=== PATIENT | female | born 1965 | race Two or more races ===

== ENCOUNTER 2019-03-04 16:49 | Emergency (ER) | payer MEDICAID, OTHER ==
[~2019-03-04] VITALS: Ht 160 cm; Wt 102.1 kg
[~2019-03-04 16:49] MED LIST: FLUO40CA PO
[2019-03-04 19:33] LABS: Basophils # (auto) 0 uL; Basophils % (auto) 0.4 % (0.0-2.0); Eosinophils # (auto) 0 uL; Eosinophils % (auto) 0.4 % (0.0-7.0); Hemoglobin 14.4 g/dL (12.2-16.2); Lymphocytes # (auto) 2.8 uL; Lymphocytes % (auto) 48.6 % (10.0-50.0); Mean Corpuscular Hemoglobin 29.2 pg (28.0-32.0); Mean Corpuscular Hgb Conc. 33.4 g/dL (32.0-36.0); Mean Corpuscular Volume 87.5 fL (80.0-100.0); Monocytes # (auto) 0.6 uL; Monocytes % (auto) 9.8 % (0.0-12.0); Neutrophils # (auto) 2.4 uL; Neutrophils % (auto) 40.8 % (37.0-80.0); Nucleated Red Blood Cells % 0.1 %; Platelet Count (auto) 362 10^3/uL (140-450); Red Blood Cells 4.92 10^6/uL (4.0-5.20); White Blood Cell 5.8 10^3/uL (4.4-10.8)
[2019-03-04 19:53] LABS: Albumin 3.5 g/dL (3.4-5.0); Calcium 8.9 mg/dL (8.5-10.1); Potassium 3.6 mmol/L (3.5-5.1)
[2019-03-04 19:57] LABS: BUN/Creatinine Ratio 27.4; Bilirubin, Total 0.1 mg/dL (0.2-1.0); Total Protein 8.5 g/dL (6.4-8.2)
[2019-03-04 20:58] VITALS: BP 137/79
== END 2019-03-04 21:00 | disposition home or self-care (01) ==
LOC: ER 16:49
DX: J40 Bronchitis, not specified as acute or chronic (principal); I10 Essential (primary) hypertension
CPT/HCPCS: 36415; 71046; 80053; 85025

== ENCOUNTER 2020-10-10 13:20 | Inpatient (IN) | payer MEDICAID ==
[~2020-10-10] VITALS: Ht 160 cm; Wt 103.7 kg
[2020-10-10] MEDS ORDERED: cefTRIAXone 1GM/50ML D5W 50 ML IV ONE (14:30)
[2020-10-10] MEDS ORDERED: SODIUM CHLORIDE 0.9% 1,000 ML IV ONE ×2 (14:30)
[2020-10-10] MEDS ORDERED: metroNIDAZOLE 500MG/100ML 100 ML IV ONE (14:30)
[2020-10-10] MEDS ORDERED: MORPHINE SULFATE 4 MG/ML SYR/VIAL IV ONE (14:30)
[2020-10-10] MEDS ORDERED: ONDANSETRON HCL 4 MG/2 ML VIAL IV ONE (14:30)
[2020-10-10 15:00] LABS: Urine Bacteria FEW /hpf (None Seen); Urine Blood Negative /uL (Negative); Urine Mucus FEW (None Seen); Urine Specific Gravity 1.031 (1.001-1.035); Urine WBC 1 /hpf (0 - 5)
[2020-10-10 15:11] LABS: Basophils # (auto) 0 10 ^3/uL (0-0.2); Basophils % (auto) 0.2 % (0.0-2.0); Eosinophils # (auto) 0 10 ^3/uL (0-0.8); Eosinophils % (auto) 0.1 % (0.0-7.0); Hematocrit 43.3 % (36.0-46.0); Hemoglobin 14.4 g/dL (12.2-16.2); Lymphocytes # (auto) 1.3 10 ^3/uL (0.4-5.4); Lymphocytes % (auto) 7.6 % (10.0-50.0); Mean Corpuscular Hemoglobin 28.7 pg (28.0-32.0); Mean Corpuscular Hgb Conc. 33.3 g/dL (32.0-36.0); Mean Corpuscular Volume 86.1 fL (80.0-100.0); Monocytes # (auto) 1.2 10 ^3/uL (0-1.3); Monocytes % (auto) 6.8 % (0.0-12.0); Neutrophils # (auto) 14.8 10 ^3/uL (1.6-8.6); Neutrophils % (auto) 85.3 % (37.0-80.0); Red Blood Cells 5.03 10^6/uL (4.0-5.20); Red Cell Distribution Width 14.4 % (11.8-14.3); White Blood Cell 17.4 10^3/uL (4.4-10.8)
[2020-10-10 15:23] LABS: Alanine Aminotransferase 23 U/L (13-56); Albumin 3.5 g/dL (3.4-5.0); Anion Gap 7 (5-15); Aspartate Aminotransferase 17 U/L (15-37); BUN/Creatinine Ratio 16.4; Blood Urea Nitrogen 10 mg/dL (7-18); Carbon Dioxide 27 mmol/L (21-32); Chloride 103 mmol/L (98-107); GFR African American 130 mL/min; GFR Non-African American 108 mL/min; Glucose 114 mg/dL (74-106); Potassium 3.5 mmol/L (3.5-5.1); Sodium 137 mmol/L (136-145)
[2020-10-10 15:41] LABS: Alkaline Phosphatase 100 U/L (45-117); Bilirubin, Total 0.4 mg/dL (0.2-1.0); Total Protein 8.8 g/dL (6.4-8.2)
[2020-10-10] MEDS ORDERED: ACETAMINOPHEN 650 mg PER 20.3 mL UD PO ONE (20:30)
[2020-10-10] MEDS ORDERED: ACETAMINOPHEN 500 MG TAB PO ONE (20:45)
[2020-10-10] MEDS ORDERED: hydrALAZINE HCL 20 MG/ML VL IV PRN (22:15)
[2020-10-10] MEDS ORDERED: NITROGLYCERIN 0.4 MG SL TAB SL PRN (22:15)
[2020-10-10] MEDS ORDERED: ONDANSETRON HCL 4 MG/2 ML VIAL IV PRN (22:15)
[2020-10-10] MEDS ORDERED: MORPHINE SULFATE INJECTION 2 MG/ML SYRG IV PRN (22:15)
[2020-10-10] MEDS ORDERED: MORPHINE SULFATE 4 MG/ML SYR/VIAL IV PRN (22:15)
[2020-10-10] MEDS ORDERED: POTASSIUM CHL 20MEQ/50ML 50 ML IV ONE (22:15)
[2020-10-10] MEDS ORDERED: SODIUM CHLORIDE 0.9% 1,000 ML IV SCH (22:15)
[2020-10-10 23:48] VITALS: BP 122/69
[2020-10-11] MEDS ORDERED: AMLO-489 PO (00:49)
[2020-10-11 05:00] VITALS: BP 138/72
[2020-10-11 05:48] LABS: Basophils # (auto) 0.1 10 ^3/uL (0-0.2); Basophils % (auto) 0.6 % (0.0-2.0); Eosinophils # (auto) 0 10 ^3/uL (0-0.8); Eosinophils % (auto) 0.1 % (0.0-7.0); Hematocrit 37.3 % (36.0-46.0); Hemoglobin 12.5 g/dL (12.2-16.2); Lymphocytes # (auto) 1.7 10 ^3/uL (0.4-5.4); Lymphocytes % (auto) 10.5 % (10.0-50.0); Mean Corpuscular Hemoglobin 29.1 pg (28.0-32.0); Mean Corpuscular Hgb Conc. 33.5 g/dL (32.0-36.0); Mean Corpuscular Volume 86.8 fL (80.0-100.0); Monocytes % (auto) 5.8 % (0.0-12.0); Neutrophils # (auto) 13.7 10 ^3/uL (1.6-8.6); White Blood Cell 16.5 10^3/uL (4.4-10.8)
[2020-10-11 05:58] LABS: Albumin 2.8 g/dL (3.4-5.0); Calcium 8.7 mg/dL (8.5-10.1); Potassium 3.7 mmol/L (3.5-5.1)
[2020-10-11 06:00] LABS: BUN/Creatinine Ratio 18.8; Bilirubin, Total 0.6 mg/dL (0.2-1.0); Total Protein 7.8 g/dL (6.4-8.2)
[2020-10-11] MEDS: metroNIDAZOLE 500MG/100ML 100 ML IV SCH ×3 (06:26→22:47)
[2020-10-11 09:00] VITALS: BP 130/74
[2020-10-11] MEDS: FAMOTIDINE (10MG/ML) 2ML VL IV SCH ×2 (11:24→22:46)
[2020-10-11] MEDS: cefTRIAXone 1GM/50ML D5W 50 ML IV SCH (11:24)
[2020-10-11] MEDS: ENOXAPARIN SOD 40 MG/0.4 ML SYRINGE SC SCH (11:25)
[2020-10-11] MEDS: SODIUM CHLORIDE 0.9% 1,000 ML IV SCH ×2 (11:25→23:53)
[2020-10-11] MEDS: LACTULOSE 20Gm/30ML SOLN PO PRN ×2 (11:26→19:30)
[2020-10-11 13:07] VITALS: BP 123/74
[2020-10-11] MEDS: ACETAMINOPHEN 325 MG TAB PO PRN ×2 (16:28→23:51)
[2020-10-11 16:42] VITALS: BP 145/80
[2020-10-11 22:00] VITALS: BP 127/77
[2020-10-11] MEDS: AMITRIPTYLINE HCL 25 MG TAB PO SCH (22:00)
[2020-10-12] MEDS ORDERED: TEMAZEPAM 15 MG CAP PO PRN (00:15)
[2020-10-12] MEDS: LACTULOSE 20Gm/30ML SOLN PO PRN (02:56)
[2020-10-12 05:00] VITALS: BP 151/88
[2020-10-12] MEDS: metroNIDAZOLE 500 MG TAB PO SCH ×3 (06:29→22:38)
[2020-10-12] MEDS: SODIUM CHLORIDE 0.9% 1,000 ML IV SCH ×2 (06:30→16:30)
[2020-10-12] MEDS ORDERED: MAGNESIUM CITRATE SOLUTION 300 ML BTL PO ONE ×2 (09:15→10:00)
[2020-10-12 09:17] LABS: Basophils # (auto) 0.1 10 ^3/uL (0-0.2); Basophils % (auto) 0.5 % (0.0-2.0); Eosinophils # (auto) 0 10 ^3/uL (0-0.8); Eosinophils % (auto) 0.2 % (0.0-7.0); Hematocrit 38.1 % (36.0-46.0); Hemoglobin 12.5 g/dL (12.2-16.2); Lymphocytes # (auto) 1.5 10 ^3/uL (0.4-5.4); Lymphocytes % (auto) 9.8 % (10.0-50.0); Mean Corpuscular Hemoglobin 28.6 pg (28.0-32.0); Mean Corpuscular Hgb Conc. 32.8 g/dL (32.0-36.0); Monocytes # (auto) 0.8 10 ^3/uL (0-1.3); Monocytes % (auto) 4.9 % (0.0-12.0); Neutrophils # (auto) 13.2 10 ^3/uL (1.6-8.6); Neutrophils % (auto) 84.6 % (37.0-80.0); Nucleated Red Blood Cells % 0.1 %; Red Blood Cells 4.38 10^6/uL (4.0-5.20); Red Cell Distribution Width 14.8 % (11.8-14.3); White Blood Cell 15.5 10^3/uL (4.4-10.8)
[2020-10-12 09:45] LABS: BUN/Creatinine Ratio 8.1; Calcium 9.1 mg/dL (8.5-10.1); Potassium 3.5 mmol/L (3.5-5.1)
[2020-10-12 12:00] VITALS: BP 154/86
[2020-10-12] MEDS ORDERED: IOHEXOL 300 MG/ML 100ML BOTTLE IJ ONE (14:28)
[2020-10-12] MEDS: FAMOTIDINE (10MG/ML) 2ML VL IV SCH ×2 (15:50→23:02)
[2020-10-12] MEDS: cefTRIAXone 1GM/50ML D5W 50 ML IV SCH (15:50)
[2020-10-12] MEDS: ENOXAPARIN SOD 40 MG/0.4 ML SYRINGE SC SCH (15:51)
[2020-10-12 17:00] VITALS: BP 148/78
[2020-10-12 22:00] VITALS: BP 137/74
[2020-10-12] MEDS: HYDROcodone-ACET 5/325MG TAB PO PRN (22:38)
[2020-10-12] MEDS: AMITRIPTYLINE HCL 25 MG TAB PO SCH (22:39)
[2020-10-12] MEDS: PIPERACILLIN-TAZO 4.5GM 100 ML IV SCH (23:29)
[2020-10-13] MEDS: PIPERACILLIN-TAZO 4.5GM 100 ML IV SCH ×2 (00:22→14:00)
[2020-10-13 05:00] VITALS: BP 132/70
[2020-10-13] MEDS: metroNIDAZOLE 500 MG TAB PO SCH (06:00)
[2020-10-13] MEDS: SODIUM CHLORIDE 0.9% 1,000 ML IV SCH ×2 (07:15→12:30)
[2020-10-13 08:00] VITALS: BP 122/65
[2020-10-13 09:00] VITALS: BP 122/94
[2020-10-13] MEDS: ENOXAPARIN SOD 40 MG/0.4 ML SYRINGE SC SCH (09:34)
[2020-10-13] MEDS: FAMOTIDINE (10MG/ML) 2ML VL IV SCH (09:34)
[2020-10-13] MEDS: HYDROcodone-ACET 5/325MG TAB PO PRN (09:35)
[2020-10-13] MEDS ORDERED: POTASSIUM CHL 20 Meq TABLET PO ONE (11:15)
[2020-10-13] MEDS ORDERED: ATOR20TA50 PO (11:26)
[2020-10-13] MEDS ORDERED: AMIT-256 PO (11:26)
[2020-10-13] MEDS ORDERED: CHLO25TA2 PO (11:26)
[2020-10-13 11:54] LABS: Basophils # (auto) 0 10 ^3/uL (0-0.2); Basophils % (auto) 0.5 % (0.0-2.0); Eosinophils # (auto) 0.1 10 ^3/uL (0-0.8); Eosinophils % (auto) 1.4 % (0.0-7.0); Hematocrit 37.4 % (36.0-46.0); Hemoglobin 12.5 g/dL (12.2-16.2); Lymphocytes # (auto) 1.5 10 ^3/uL (0.4-5.4); Mean Corpuscular Hemoglobin 28.8 pg (28.0-32.0); Mean Corpuscular Hgb Conc. 33.3 g/dL (32.0-36.0); Mean Corpuscular Volume 86.4 fL (80.0-100.0); Monocytes # (auto) 0.6 10 ^3/uL (0-1.3); Monocytes % (auto) 7.6 % (0.0-12.0); Neutrophils % (auto) 72.5 % (37.0-80.0); Red Blood Cells 4.33 10^6/uL (4.0-5.20); Red Cell Distribution Width 14.5 % (11.8-14.3); White Blood Cell 8.2 10^3/uL (4.4-10.8)
[2020-10-13] MEDS ORDERED: METR500T PO (11:55)
[2020-10-13] MEDS ORDERED: LEVO500T31 PO (11:55)
[2020-10-13 12:44] VITALS: BP 128/63
[2020-10-13 15:45] VITALS: BP 128/63
== END 2020-10-13 16:45 | disposition home or self-care (01) | DRG 720 ==
LOC: ER 13:20 → OVERFLOW 22:04 → WEST WING 23:22
PROVIDERS: ADMIT Nurse Practitioner Family; ATTEND Internal Medicine
DX: A41.9 Sepsis, unspecified organism (principal); R16.0 Hepatomegaly, not elsewhere classified; K57.32 Diverticulitis of large intestine without perforation or abscess without bleeding; E66.01 Morbid (severe) obesity due to excess calories; F32.9 Major depressive disorder, single episode, unspecified; I10 Essential (primary) hypertension; K59.00 Constipation, unspecified; Z20.822 Contact with and (suspected) exposure to COVID-19; Z79.899 Other long term (current) drug therapy; Z53.20 Procedure and treatment not carried out because of patient's decision for unspecified reasons; Z80.41 Family history of malignant neoplasm of ovary; Z82.49 Family history of ischemic heart disease and other diseases of the circulatory system; M19.90 Unspecified osteoarthritis, unspecified site; Z68.41 Body mass index [BMI] 40.0-44.9, adult
CPT/HCPCS: 36415; 71045; 74176; 74177; 80048; 80053; 81001; 83036; 83605; 84484; 85025; 87040; 87426; 96365; 96368; 96375; G0378; J0696; J2405; J2543; J3490

== ENCOUNTER 2022-01-19 22:38 | Emergency (ER) | payer MEDICAID ==
[~2022-01-19 22:38] MED LIST changes: +AMIT-256 PO; +AMLO-489 PO; +ATOR20TA50 PO; +CHLO25TA2 PO; -FLUO40CA PO; +LEVO500T31 PO; +METR500T PO
[2022-01-20 00:53] LABS: Urine Bacteria FEW /hpf (None Seen); Urine Blood TRACE /uL (Negative); Urine Mucus FEW (None Seen); Urine Specific Gravity 1.022 (1.001-1.035); Urine WBC 5 /hpf (0 - 5)
[2022-01-20] MEDS ORDERED: SODIUM CHLORIDE 0.9% 1,000 ML IV ONE ×2 (01:45→06:45)
[2022-01-20 02:11] LABS: Basophils # (auto) 0 10 ^3/uL (0-0.2); Basophils % (auto) 0.4 % (0.0-2.0); Eosinophils # (auto) 0 10 ^3/uL (0-0.8); Eosinophils % (auto) 0.3 % (0.0-7.0); Hematocrit 42.2 % (36.0-46.0); Hemoglobin 13.8 g/dL (12.2-16.2); Lymphocytes # (auto) 1.2 10 ^3/uL (0.4-5.4); Lymphocytes % (auto) 8.9 % (10.0-50.0); Mean Corpuscular Hemoglobin 28.9 pg (28.0-32.0); Mean Corpuscular Hgb Conc. 32.6 g/dL (32.0-36.0); Mean Corpuscular Volume 88.6 fL (80.0-100.0); Monocytes # (auto) 0.4 10 ^3/uL (0-1.3); Monocytes % (auto) 3.3 % (0.0-12.0); Neutrophils # (auto) 11.4 10 ^3/uL (1.6-8.6); Neutrophils % (auto) 87.1 % (37.0-80.0); Red Blood Cells 4.77 10^6/uL (4.0-5.20); Red Cell Distribution Width 14.2 % (11.8-14.3); White Blood Cell 13.1 10^3/uL (4.4-10.8)
[2022-01-20 02:26] LABS: Albumin 3.8 g/dL (3.4-5.0); Anion Gap 8 (5-15); Blood Urea Nitrogen 17 mg/dL (7-18); Calcium 9.3 mg/dL (8.5-10.1); Carbon Dioxide 25 mmol/L (21-32); Chloride 108 mmol/L (98-107); Glucose 118 mg/dL (74-106); Lipase 129 U/L (73-393); Potassium 4.4 mmol/L (3.5-5.1); Sodium 141 mmol/L (136-145)
[2022-01-20 02:27] LABS: Alanine Aminotransferase 30 U/L (13-56); Aspartate Aminotransferase 17 U/L (15-37); BUN/Creatinine Ratio 22.4; GFR African American 101 mL/min; GFR Non-African American 83 mL/min
[2022-01-20 02:31] LABS: Alkaline Phosphatase 97 U/L (45-117); Bilirubin, Total 0.6 mg/dL (0.2-1.0); Total Protein 8.3 g/dL (6.4-8.2)
[2022-01-20] MEDS ORDERED: cefTRIAXone 1GM/50ML D5W 50 ML IV ONE (06:45)
[2022-01-20] MEDS ORDERED: metroNIDAZOLE 500MG/100ML 100 ML IV ONE (06:45)
[2022-01-20] MEDS ORDERED: SODIUM CHLORIDE 0.9% 1,000 ML IVB ONE (06:45)
[2022-01-20 12:00] VITALS: BP 138/67
[2022-01-20] MEDS ORDERED: LACTULOSE 20Gm/30ML SOLN PO ONE (12:00)
[2022-01-20] MEDS ORDERED: DOCUSATE SOD 100 MG CAP PO ONE (12:00)
[2022-01-20] MEDS ORDERED: DOCU-94 PO (12:33)
== END 2022-01-20 15:40 | disposition home or self-care (01) ==
LOC: ER 22:39
DX: R10.11 Right upper quadrant pain (principal); I10 Essential (primary) hypertension
CPT/HCPCS: 36415; 74176; 76700; 80053; 81001; 83690; 85025; 96361; 96365; 96366; 96367; 99285; J0696; J3490; J7030

== ENCOUNTER 2023-03-13 15:33 | Emergency (ER) | payer MEDICAID ==
[~2023-03-13] VITALS: Ht 160 cm; Wt 110.5 kg
[~2023-03-13 15:33] MED LIST changes: -AMLO-489 PO; +AMLO1TAB22 PO; +DOCU-94 PO
[2023-03-13 16:00] VITALS: BP 143/86; PULSE 83; RESP 16; TEMP 98.3; O2SAT 96
[2023-03-13] MEDS ORDERED: HYDROcodone-ACET 5/325MG TAB PO ONE (16:15)
[2023-03-13] MEDS ORDERED: METH-1182 PO (17:37)
[2023-03-13] MEDS ORDERED: IBUP-1454 PO (17:37)
== END 2023-03-13 17:41 | disposition home or self-care (01) ==
LOC: ER 15:33
DX: S33.5XXA Sprain of ligaments of lumbar spine, initial encounter (principal); S83.91XA Sprain of unspecified site of right knee, initial encounter; S39.013A Strain of muscle, fascia and tendon of pelvis, initial encounter; W18.09XA Striking against other object with subsequent fall, initial encounter; Y93.89 Activity, other specified; Y92.89 Other specified places as the place of occurrence of the external cause; Y99.8 Other external cause status
CPT/HCPCS: 72100; 72170; 73562

== ENCOUNTER 2024-05-03 12:11 | Inpatient (IN) | payer MEDICAID ==
[~2024-05-03] VITALS: Ht 160 cm; Wt 121.3 kg
[~2024-05-03 12:11] MED LIST changes: +IBUP-1454 PO; +METH-1182 PO
[2024-05-03] MEDS: IOHEXOL 300 MG/ML 100ML BOTTLE IJ ONE (14:12)
[2024-05-03 14:27] LABS: Basophils # (auto) 0.1 10 ^3/uL (0-0.2); Basophils % (auto) 0.5 % (0.0-2.0); Eosinophils # (auto) 0 10 ^3/uL (0-0.8); Eosinophils % (auto) 0.4 % (0.0-7.0); Hematocrit 43.9 % (36.0-46.0); Hemoglobin 14.4 g/dL (12.2-16.2); Lymphocytes # (auto) 1.9 10 ^3/uL (0.4-5.4); Lymphocytes % (auto) 14.7 % (10.0-50.0); Mean Corpuscular Hemoglobin 29.3 pg (28.0-32.0); Mean Corpuscular Hgb Conc. 32.8 g/dL (32.0-36.0); Mean Corpuscular Volume 89.4 fL (80.0-100.0); Monocytes % (auto) 7.4 % (0.0-12.0); Neutrophils # (auto) 10.2 10 ^3/uL (1.6-8.6); Nucleated Red Blood Cells % 0.1 %; Platelet Count (auto) 449 10^3/uL (140-450); Red Blood Cells 4.91 10^6/uL (4.0-5.20); Red Cell Distribution Width 14.6 % (11.8-14.3); White Blood Cell 13.2 10^3/uL (4.4-10.8)
[2024-05-03 14:30] LABS: Urine Bacteria None Seen /hpf (None Seen)
[2024-05-03 14:39] LABS: Urine Blood Negative /uL (Negative); Urine Clarity Clear (Clear); Urine Color Light-Yellow (Yellow); Urine Protein, UAD Negative (Negative); Urine Specific Gravity 1.023 (1.001-1.035); Urine Squamous Epithelial Cell FEW /hpf (<5); Urine Urobilinogen Normal (Negative); Urine WBC 1 /HPF (0-5)
[2024-05-03 14:58] LABS: Alanine Aminotransferase 18 U/L (7-40); Albumin 4.7 g/dL (3.2-4.8); Alkaline Phosphatase 98 U/L (46-116); Anion Gap 9 (5-15); Aspartate Aminotransferase 18 U/L (13-40); BUN/Creatinine Ratio 14.8 (10.0-20.0); Blood Urea Nitrogen 12 mg/dL (9-23); Calcium 10.2 mg/dL (8.7-10.4); Carbon Dioxide 26 mmol/L (20-31); Chloride 102 mmol/L (98-107); Glucose 93 mg/dL (74-106); Lipase 44 U/L (12-53); Potassium 4.4 mmol/L (3.5-5.1); Sodium 137 mmol/L (136-145)
[2024-05-03 15:01] LABS: Bilirubin, Total 0.3 mg/dL (0.2-1.0); Total Protein 8.5 g/dL (5.7-8.2)
--- NOTE | 2024-05-03 15:36 | DVH ---
EXAM: CT CT AB PEL WITH IV CON ONLY HISTORY: Ab pain. r/o diverticulitis COMPARISON: CT AB PEL WITH IV CON ONLY on DOS: 10/12/20 TECHNIQUE: Helical CT images of the abdomen and pelvis were performed with 100 mL Omnipaque 300 IV co ntrast. Sagittal and coronal reformatted images were obtained. This CT exam was performed using 1 or more of the following dose reduction techniques: Automated exposure control, adjustment of the mA and /or kv according to patient size, or the use of iterative reconstruction techniques. Radiation Dose Information: CT Dose: CTDI volume is 27.88 mGy. Dose-length product is 1630.36 mGy*cm FINDINGS: CT abdomen: There is peribronchial thickening in the lung bases. The heart is borderline enlarged. Th ere are coronary artery calcifications. Gallstone is identified in the dependent portion of the gallb ladder. There may be a right renal inferior pole nonobstructing 3 mm calculus versus artifactual appe arance due to early contrast excretion (image 53, series 2). The liver measures 23 cm longitudinal an d is diffusely fatty density. The spleen, pancreas, left kidney, and bilateral adrenal glands are unr emarkable. No abdominal aortic aneurysm or dissection. CT pelvis: No abnormal bowel dilatation. There are descending and sigmoid colon diverticula. There is wall thickening and adjacent fat stranding involving the sigmoid colon, with small pockets of extr aluminal gas (image 79, series 2), consistent with acute diverticulitis. The uterus is surgically abs ent. The urinary bladder is unremarkable. The appendix is not dilated. There is advanced lower lumbar degenerative disc disease and facet arthropathy. There is mild osteoarthritis of the hips, slightly greater on the right IMPRESSION: 1. Acute sigmoid diverticulitis with small pockets of extraluminal gas which may represent developing pericolic abscess. No evidence of formed drainable pericolic abscess at this time. 2. Coronary artery disease and Borderline cardiomegaly. 3. Hepatomegaly and hepatic steatosis. 4. Postoperative changes of hysterectomy. 5. Advanced lower lumbar degenerative disc disease and facet arthropathy. 6. No evidence of bowel obstruction, acute appendicitis, or other acute process in the abdomen or pel vis.
--- NOTE | 2024-05-03 16:28 | ED.PDOC ---
GI ASSESSMENT HPI Comments This is a pleasant 58-year-old with a history of diverticulitis several years ago who presents with a chief complaint of atraumatic left lower quadrant abdominal pain x5 days. Pain is nonradiating the patient reports pain has remained persistent for the last five days. Unable to get adequate relief with [id number] Tylenol. Patient also reports symptoms of mild constipation. Last bowel movement was today but smaller than usual. Denies fevers chills night sweats unintentional weight loss Denies nausea vomiting diarrhea Denies blood in the stool Denies sick contact with similar symptoms Denies new foods/medications Denies family history of GI cancer Denies urgency, frequency, hematuria Denies vaginal discharge Chief Complaint: Constipation Time Seen by MD: 13:03 Primary Care Provider: AMY Hernandez Notes: Nurses Notes, Medications, Allergies Allergies: Coded Allergies: NO KNOWN ALLERGIES (Unverified , 07/22/15) Home Meds Active Scripts Lactulose (Lactulose) 10 Gm/15 Ml Jennie, 10 GM PO DAILY PRN for 30 Days, #300 ML 0 Refills Prov:LOAN EUGENE RESIDENT 05/06/24 Amoxicillin & Pot Clavulanate (AUGMENTIN TABLET) 875 Mg Tb, 875 MG PO BID for 7 Days, #14 TAB 0 Refills Prov:LOAN EUGENE RESIDENT 05/06/24 Reported Medications Citalopram Hydrobromide (Citalopram Hydrobromide) 20 Mg Tab, 1 TAB PO DAILY 05/03/24 Amlodipine Besylate (Amlodipine Besylate) 5 Mg Tab, 10 MG PO DAILY, MG 10/11/20 Discontinued Reported Medications Chlorthalidone (Chlorthalidone) 25 Mg Tab, 1 TAB PO DAILYPRN 10/13/20 Amitriptyline HCl (Amitriptyline Hydrochlori) 50 Mg Tab, 1 TAB PO 10/13/20 Atorvastatin Calcium (ATORVASTATIN CALCIUM) 20 Mg Tab, 1 TAB PO DAILYPRN 10/13/20 Information Source: Patient Mode of Arrival: Ambulatory Past Medical History PAST MEDICAL HISTORY: Arthritis, Depression, HTN Surgical History: Denies all surgeries POLICE MAGISTRATE History: No Pertinent POLICE MAGISTRATE History Family History Family History: Reviewed,noncontributory to illness Social History Smoker: Non-Smoker Alcohol: Rarely Drugs: Denies Drug Use Lives In: Home All Other Systems: Reviewed and Negative (per hpi) Physical Exam General Appearance: No Apparent Distress, Normal HEENT: Normal ENT Inspection, Pharynx Normal, TMs Normal Neck: Full Range of Motion, Non-Tender, Normal, Normal Inspection Respiratory: Chest Non-Tender, Lungs Clear, No Accessory Muscle Use, No Respiratory Distress, Normal Breath Sounds Cardiovascular: No Murmur, No Gallop, Regular Rate/Rhythm Breast Exam: Deferred Gastrointestinal: LLQ (Lower quadrant TTP.), No Organomegaly, No Pulsatile M ass, Normal Bowel Sounds, Tenderness Genitalia: Deferred Pelvic: Deferred Rectal: Deferred Extremities: No calf tenderness, Normal capillary refill, Normal inspection, Normal range of motion, Non-tender, No pedal edema Musculoskeletal : Apperance: Normal Neurologic: Alert, No Motor Deficits, Normal Affect, Normal Mood, No Sensory Deficits Cerebellar Function: Normal Reflexes: Normal Skin: Dry, Normal Color, Warm Lymphatic: No Adenopathy Was a procedure done? Was a procedure done?: No GI differential Dx Differential Diagnosis: Appendicitis, Constipation, Diverticular disease, Gastroenteritis X-Ray, Labs, Meds, VS Vital Signs Date Time Temp Pulse Resp B/P (MAP) Pulse Ox O2 Delivery O2 Flow Rate FiO2 05/03/24 18:34 98 17 151/83 (105) 96 05/03/24 18:25 98 16 151/83 05/03/24 16:59 105 19 95 Room Air* 0 21 05/03/24 16:47 97.9 105 18 119/65 (83) 95 97.9 05/03/24 16:47 105 18 119/65 05/03/24 13:26 93 18 93 Room Air 05/03/24 13:26 96.6 108 18 146/82 (103) 93 96.6 05/03/24 12:27 96.6 105 18 146/82 (103) 93 Lab Test 05/03/24 16:26 05/03/24 14:00 05/03/24 13:49 Range/Units Lactic Acid Level 0.8 0.4-2.0 mmol/L Urine Color Light-yellow Yellow Urine Clarity Clear Clear Urine pH 7.0 5.0-9.0 Urine Specific [place] 1.023 1.001-1.035 Urine Protein Negative Negative Urine Ketones Negative Negative Urine Blood Negative Negative /uL Urine Nitrite Negative Negative Urine Bilirubin Negative Negative Urine Urobilinogen Normal Negative mg/dL Urine Leukocyte Esterase Negative Negative /uL Urine RBC 1 0 - 4 /hpf Urine Microscopic WBC 1 0-5 /HPF Urine Squamous Epithelial Cells Few <5 /hpf Urine Bacteria None seen None Seen /hpf Urine Glucose Normal Normal mg/dL White Blood Count 13.2 H 4.4-10.8 10^3/uL Red Blood Count 4.91 4.0-5.20 10^6/uL Hemoglobin 14.4 12.2-16.2 g/dL Hematocrit 43.9 36.0-46.0 % Mean Corpuscular Volume 89.4 80.0-100.0 fL Mean Corpuscular Hemoglobin 29.3 28.0-32.0 pg Mean Corpuscular Hemoglobin Concent 32.8 32.0-36.0 g/dL Red Cell Distribution Width 14.6 H 11.8-14.3 % Platelet Count 449 140-450 10^3/uL Mean Platelet Volume 7.4 6.9-10.8 fL Neutrophils (%) (Auto) 77.0 37.0-80.0 % Lymphocytes (%) (Auto) 14.7 10.0-50.0 % Monocytes (%) (Auto) 7.4 0.0-12.0 % Eosinophils (%) (Auto) 0.4 0.0-7.0 % Basophils (%) (Auto) 0.5 0.0-2.0 % Neutrophils # (Auto) 10.2 H 1.6-8.6 10 ^3/uL Lymphocytes # (Auto) 1.9 0.4-5.4 10 ^3/uL Monocytes # (Auto) 1.0 0-1.3 10 ^3/uL Eosinophils # (Auto) 0 0-0.8 10 ^3/uL Basophils # (Auto) 0.1 0-0.2 10 ^3/uL Nucleated Red Blood Cells 0.1 % Sodium Level 137 136-145 mmol/L Potassium Level 4.4 3.5-5.1 mmol/L Chloride Level 102 98-107 mmol/L Carbon Dioxide Level 26 20-31 mmol/L Anion Gap 9 5-15 Blood Urea Nitrogen 12 9-23 mg/dL Creatinine 0.81 0.550-1.02 mg/dL Glomerular Filtration Rate Calc 83 >90 mL/min BUN/Creatinine Ratio 14.8 10.0-20.0 Serum Glucose 93 74-106 mg/dL Calcium Level 10.2 8.7-10.4 mg/dL Total Bilirubin 0.3 0.2-1.0 mg/dL Aspartate Amino Transferase (AST) 18 13-40 U/L Alanine Aminotransferase (ALT) 18 7-40 U/L Alkaline Phosphatase 98 46-116 U/L Total Protein 8.5 H 5.7-8.2 g/dL Albumin 4.7 3.2-4.8 g/dL Lipase 44 12-53 U/L PATIENT: MILES VERDIN: [id number]: [id number] : 1965 LOC: ER ROOM / BED: / AGE / SEX: 58 / F ADM STATUS: REG ER SERVICE [id number] ORDERING PHYSICIAN: SHAAN HOLLAND NP PROCEDURE(s): ABPLIV - CT AB PEL WITH IV CON ONLY REASON: Ab pain. r/o diverticulitis ORDER NUMBER(s): [id number], ACCESSION NUMBER(s): [id number] EXAM: CT CT AB PEL WITH IV CON ONLY HISTORY: Ab pain. r/o diverticulitis COMPARISON: CT AB PEL WITH IV CON ONLY on DOS: 10/12/20 TECHNIQUE: Helical CT images of the abdomen and pelvis were performed with 100 mL Omnipaque 300 IV contrast. Sagittal and coronal reformatted images were obtained. This CT exam was performed using 1 or more of the following dose red uction techniques: Automated exposure control, adjustment of the mA and/or kv according to patient size, or the use of iterative reconstruction techniques. Radiation Dose Information: CT Dose: CTDI volume is 27.88 mGy. Dose-length product is 1630.36 mGy*cm FINDINGS: CT abdomen: There is peribronchial thickening in the lung bases. The heart is borderline enlarged. There are coronary artery calcifications. Gallstone is identified in the dependent portion of the gallbladder. There may be a right renal inferior pole nonobstructing 3 mm calculus versus artifactual appearance due to early contrast excretion (image 53, series 2). The liver measures 23 cm longitudinal and is diffusely fatty density. The spleen, pancreas, left kidney, and bilateral adrenal glands are unremarkable. No abdominal aortic aneurysm or dissection. CT pelvis: No abnormal bowel dilatation. There are descending and sigmoid colon diverticula. There is wall thickening and adjacent fat stranding involving the sigmoid colon, with small pockets of extraluminal gas (image 79, series 2), consistent with acute diverticulitis. The uterus is surgically absent. The urinary bladder is unremarkable. The appendix is not dilated. There is advanced lower lumbar degenerative disc disease and facet arthropathy. There is mild osteoarthritis of the hips, slightly greater on the right IMPRESSION: 1. Acute sigmoid diverticulitis with small pockets of extraluminal gas which may represent developing pericolic abscess. No evidence of formed drainable pericoli c abscess at this time. 2. Coronary artery disease and Borderline cardiomegaly. 3. Hepatomegaly and hepatic steatosis. 4. Postoperative changes of hysterectomy. 5. Advanced lower lumbar degenerative disc disease and facet arthropathy. 6. No evidence of bowel obstruction, acute appendicitis, or other acute process in the abdomen or pelvis. ATED BY: SOLO SADLER MD DICTATED DATE/TIME: 05/03/24 1534 SIGNED BY: SOLO SADLER MD SIGNED DATE/TIME: 05/03/24 1534 CC: X-Ray, Labs, Meds, VS Comment Differential diagnoses include acute diverticulitis, abscess, fistula, peritonitis, rectosigmoid perforation, bowel obstruction, ischemic colitis, Crohns disease, mesenteric ischemia, aortic rupture, tubo-ovarian abscess. The patient presented with signs and symptoms concerning for diverticulitis. Labs ordered. Patient underwent CT of the abdomen and pelvis. This study revealed Acute sigmoid diverticulitis with small pockets of extraluminal gas which may represent developing pericolic abscess. No evidence of formed drainable pericolic abscess at this time. Patient was treated with IV antibiotics. Patient received 2 g of Rocephin, Flagyl, 1 L of normal saline and four mg of morphine for her pain The patient's workup reveals that the patient needs further evaluation and/or treatment for the above medical conditions. Patient verbalized understanding of the above and is awaiting further evaluation by the admitting service. Time of 1ST Reevaluation: 16:23 Reevaluation 1ST: Improved Patient Education/Counseling: Diagnosis, Treatment Family Education/Counseling: Diagnosis, Treatment Departure 1 Departure Time of Disposition: 16:24 Impression: Primary Impression: Acute diverticulitis Disposition: ADMITTED INPATIENT Condition: Stable e-Prescriptions Lactulose (Lactulose) 10 Gm/15 Ml Jennie 10 GM PO DAILY PRN for 30 Days, #300 ML 0 Refills Prov: LOAN EUGENE RESIDENT 05/06/24 Amoxicillin & Pot Clavulanate (AUGMENTIN TABLET) 875 Mg Tb 875 MG PO BID for 7 Days, #14 TAB 0 Refills Prov: LOAN EUGENE RESIDENT 05/06/24 Discharged With: Self Critical Care Note Critical Care Time?: No Stability Stability form required: No Heart Score Heart Score: Heart Score Response (Comments) Value History N/A 0 EKG N/A 0 Age N/A 0 Risk Factors N/A 0 Troponin N/A 0 Total 0 SHAAN HOLLAND NP May 03, 2024 16:28
[2024-05-03] MEDS: cefTRIAXone 2GM/50ML D5W 50 ML IV ONE (16:46)
[2024-05-03] MEDS: metroNIDAZOLE 500MG/100ML 100 ML IV ONE (16:46)
[2024-05-03] MEDS: MORPHINE SULFATE 4 MG/ML SYR/VIAL IV ONE (16:47)
[2024-05-03] MEDS: SODIUM CHLORIDE 0.9% 1,000 ML IV ONE (16:47)
[2024-05-03 16:59] VITALS: PULSE 105; RESP 19; O2SAT 95
[2024-05-03 21:42] VITALS: BP 114/57; PULSE 78; RESP 18; TEMP 96.7
[2024-05-03] MEDS: ONDANSETRON HCL 4 MG/2 ML VIAL IV PRN (22:30)
[2024-05-03 22:32] VITALS: PULSE 95; RESP 18; O2SAT 95
[2024-05-03] MEDS ORDERED: CITA-77 PO (22:43)
[2024-05-03] MEDS: metroNIDAZOLE 500MG/100ML 100 ML IV SCH (23:17)
[2024-05-04] VITALS (8 sets, daily range): BP systolic 111–152; BP diastolic 58–91; PULSE 67–95; RESP 18–20; TEMP 97.9–98.5; O2SAT 93–98
[2024-05-04] MEDS: SODIUM CHLORIDE 0.9% 1,000 ML IV ONE (00:50)
--- NOTE | 2024-05-04 04:06 | DVHHP2 ---
History of Present Illness Reason for Visit: Abdominal pain History of Present Illness 58-year-old female presents for evaluation of abdominal pain. Patient reports a five day history of abdominal pain. She does report a history of previous diverticulitis. She presents with left lower quadrant abdominal pain that is nonradiating. Denies nausea or vomiting. No fever or chills. No other acute complaints reported. Past Medical History Hypertension, depression, dyslipidemia, diverticulitis Past Surgical History Denies Family History Noncontributory Smoke: No ALCOHOL: none Drugs: None Lives: with Family Review of Systems Review of Systems Review of systems are currently negative otherwise addressed in HPI. Allergies: Coded Allergies: NO KNOWN ALLERGIES (Unverified , 07/22/15) Medications Current Medications Medications Dose Ordered Sig/Mason Route Start Time Stop Time Status Last Admin Dose Admin Ceftriaxone Sodium 50 ml @ 100 mls/hr DAILY@1600 IV 05/04/24 16:00 Metronidazole 100 ml @ 100 mls/hr Q8H IV 05/04/24 00:00 05/03/24 23:17 100 MLS/HR Ondansetron HCl 4 mg Q4HP PRN IV 05/03/24 19:45 05/03/24 22:30 4 MG Morphine Sulfate 2 mg Q4HPRN PRN IV 05/03/24 19:45 Exam Vital Signs Vital Signs Date Time Temp Pulse Resp B/P (MAP) Pulse Ox O2 Delivery O2 Flow Rate FiO2 05/04/24 01:00 97.9 95 18 111/62 (78) 94 97.9 05/04/24 00:26 Room Air* 0 21 Exam Gen: 58-year-old female in mild distress Skin: Warm, dry, normal color and texture, no rash. HEENT: Normocephalic atraumatic, mucous membranes moist and pink. Neck: Cervical and supraclavicular nodes normal without enlargement, trachea is midline, thyroid gland is normal without masses. Pulmonary: Clear to auscultation and percussion bilaterally. Cardiac: Regular rate and rhythm. No murmur Abdomen: Soft, left lower quadrant tenderness, nondistended, bowel sounds present all 4 quadrants, no guarding, no rigidity, no organomegaly. Extremities: No cyanosis, clubbing, no edema Neuro: Cranial nerves II through XII grossly intact, normal affect and speech, no focal motor deficits. Labs/Xrays ORDERING PHYSICIAN: SHAAN HOLLAND NP PROCEDURE(s): ABPLIV - CT AB PEL WITH IV CON ONLY REASON: Ab pain. r/o diverticulitis ORDER NUMBER(s): [id number], ACCESSION NUMBER(s): [id number] EXAM: CT CT AB PEL WITH IV CON ONLY HISTORY: Ab pain. r/o diverticulitis COMPARISON: CT AB PEL WITH IV CON ONLY on DOS: 10/12/20 TECHNIQUE: Helical CT images of the abdomen and pelvis were performed with 100 mL Omnipaque 300 IV contrast. Sagittal and coronal reformatted images were obtained. This CT exam was performed using 1 or more of the following dose reduction techniques: Automated exposure control, adjustment of the mA and/or kv according to patient size, or the use of iterative reconstruction techniques. Radiation Dose Information: CT Dose: CTDI volume is 27.88 mGy. Dose-length product is 1630.36 mGy*cm FINDINGS: CT abdomen: There is peribronchial thickening in the lung bases. The heart is borderline enlarged. There are coronary artery calcifications. Gallstone is i dentified in the dependent portion of the gallbladder. There may be a right renal inferior pole nonobstructing 3 mm calculus versus artifactual appearance due to early contrast excretion (image 53, series 2). The liver measures 23 cm longitudinal and is diffusely fatty density. The spleen, pancreas, left kidney, and bilateral adrenal glands are unremarkable. No abdominal aortic aneurysm or dissection. CT pelvis: No abnormal bowel dilatation. There are descending and sigmoid colon diverticula. There is wall thickening and adjacent fat stranding involving the sigmoid colon, with small pockets of extraluminal gas (image 79, series 2), consistent with acute diverticulitis. The uterus is surgically absent. The urinary bladder is unremarkable. The appendix is not dilated. There is advanced lower lumbar degenerative disc disease and facet arthropathy. There is mild osteoarthritis of the hips, slightly greater on the right IMPRESSION: 1. Acute sigmoid diverticulitis with small pockets of extraluminal gas which may represent developing pericolic abscess. No evidence of formed drainable pericolic abscess at this time. 2. Coronary artery disease and Borderline cardiomegaly. 3. Hepatomegaly and hepatic steatosis. 4. Postoperative changes of hysterectomy. 5. Advanced lower lumbar degenerative disc disease and facet arthropathy. 6. No evidence of bowel obstruction, acute appendicitis, or other acute process in the abdomen or pelvis. Labs Test 05/03/24 16:26 05/03/24 14:00 05/03/24 13:49 Range/Units Lactic Acid Level 0.8 0.4-2.0 mmol/L Urine Color Light-yellow Yellow Urine Clarity Clear Clear Urine pH 7.0 5.0-9.0 Urine Specific [place] 1.023 1.001-1.035 Urine Protein Negative Negative Urine Ketones Negative Negative Urine Blood Negative Negative /uL Urine Nitrite Negative Negative Urine Bilirubin Negative Negative Urine Urobilinogen Normal Negative mg/dL Urine Leukocyte Esterase Negative Negative /uL Urine RBC 1 0 - 4 /hpf Urine Microscopic WBC 1 0-5 /HPF Urine Squamous Epithelial Cells Few <5 /hpf Urine Bacteria None seen None Seen /hpf Urine Glucose Normal Normal mg/dL White Blood Count 13.2 H 4.4-10.8 10^3/uL Red Blood Count 4.91 4.0-5.20 10^6/uL Hemoglobin 14.4 12.2-16.2 g/dL Hematocrit 43.9 36.0-46.0 % Mean Corpuscular Volume 89.4 80.0-100.0 fL Mean Corpuscular Hemoglobin 29.3 28.0-32.0 pg Mean Corpuscular Hemoglobin Concent 32.8 32.0-36.0 g/dL Red Cell Distribution Width 14.6 H 11.8-14.3 % Platelet Count 449 140-450 10^3/uL Mean Platelet Volume 7.4 6.9-10.8 fL Neutrophils (%) (Auto) 77.0 37.0-80.0 % Lymphocytes (%) (Auto) 14.7 10.0-50.0 % Monocytes (%) (Auto) 7.4 0.0-12.0 % Eosinophils (%) (Auto) 0.4 0.0-7.0 % Basophils (%) (Auto) 0.5 0.0-2.0 % Neutrophils # (Auto) 10.2 H 1.6-8.6 10 ^3/uL Lymphocytes # (Auto) 1.9 0.4-5.4 10 ^3/uL Monocytes # (Auto) 1.0 0-1.3 10 ^3/uL Eosinophils # (Auto) 0 0-0.8 10 ^3/uL Basophils # (Auto) 0.1 0-0.2 10 ^3/uL Nucleated Red Blood Cells 0.1 % Sodium Level 137 136-145 mmol/L Potassium Level 4.4 3.5-5.1 mmol/L Chloride Level 102 98-107 mmol/L Carbon Dioxide Level 26 20-31 mmol/L Anion Gap 9 5-15 Blood Urea Nitrogen 12 9-23 mg/dL Creatinine 0.81 0.550-1.02 mg/dL Glomerular Filtration Rate Calc 83 >90 mL/min BUN/Creatinine Ratio 14.8 10.0-20.0 Serum Glucose 93 74-106 mg/dL Calcium Level 10.2 8.7-10.4 mg/dL Total Bilirubin 0.3 0.2-1.0 mg/dL Aspartate Amino Transferase (AST) 18 13-40 U/L Alanine Aminotransferase (ALT) 18 7-40 U/L Alkaline Phosphatase 98 46-116 U/L Total Protein 8.5 H 5.7-8.2 g/dL Albumin 4.7 3.2-4.8 g/dL Lipase 44 12-53 U/L Assessment/Plan Assessment/Plan Assessment Acute diverticulitis with? Abscess Acute abdominal pain Hypertension Morbid obesity Plan Admit the patient to [facility] [place] to the hospitalist Surgical consultation Rocephin/Flagyl NPO Maintenance IV fluids Pain management Continue treatment per orders. Plan discussed with: Patient My Orders Orders - LINDSAY RENTERIA AGACNP Procedure Category Date Status Time Ceftriaxone 1gm/50ml PHA 05/04/24 In Process D5w (Rocephin) 16:00 Sodium Chloride 0.9% PHA 05/03/24 In Process 19:45 Basic Metabolic Panel LAB 05/04/24 Logged 04:00 Admit ADMIT 05/03/24 Transmitted 19:36 Ondansetron Hcl PHA 05/03/24 In Process (Zofran) 19:45 Complete Blood Count LAB 05/04/24 Logged 04:00 Npo (Nothing By DIET 05/04/24 Transmitted Mouth) Diet Breakfast Condition: Stable WILL 05/03/24 In Process 19:36 Bedrest With Bathroom WILL 05/03/24 In Process Privileg 19:36 Morphine Sulfate PHA 05/03/24 In Process Injection 19:45 Metronidazole PHA 05/04/24 In Process 500mg/100ml (Flagyl 00:00 * Surgical Consult CONS 05/04/24 Transmitted 03:24 Date of Service: May 03, 2024 Billing Provider: LINDSAY RENTERIA Common Visit Codes: [id number] INP/OBS CARE (HIGH) LINDSAY RENTERIA May 04, 2024 04:06
[2024-05-04 06:39] LABS: Chloride 103 mmol/L (98-107); Sodium 139 mmol/L (136-145)
[2024-05-04 06:40] LABS: Anion Gap 9 (5-15); Calcium 9.7 mg/dL (8.7-10.4); Carbon Dioxide 27 mmol/L (20-31)
[2024-05-04 06:45] LABS: Blood Urea Nitrogen 12 mg/dL (9-23); Glucose 103 mg/dL (74-106)
[2024-05-04 06:54] LABS: Basophils # (auto) 0 10 ^3/uL (0-0.2); Basophils % (auto) 0.4 % (0.0-2.0); Eosinophils # (auto) 0.1 10 ^3/uL (0-0.8); Hematocrit 39.3 % (36.0-46.0); Hemoglobin 13.3 g/dL (12.2-16.2); Lymphocytes # (auto) 2.2 10 ^3/uL (0.4-5.4); Lymphocytes % (auto) 22.1 % (10.0-50.0); Mean Corpuscular Hemoglobin 30.1 pg (28.0-32.0); Mean Corpuscular Hgb Conc. 33.9 g/dL (32.0-36.0); Mean Corpuscular Volume 88.8 fL (80.0-100.0); Monocytes # (auto) 0.7 10 ^3/uL (0-1.3); Monocytes % (auto) 6.6 % (0.0-12.0); Neutrophils % (auto) 69.9 % (37.0-80.0); Nucleated Red Blood Cells % 0.1 %; Platelet Count (auto) 447 10^3/uL (140-450); Red Blood Cells 4.42 10^6/uL (4.0-5.20); Red Cell Distribution Width 14.3 % (11.8-14.3)
--- NOTE | 2024-05-04 09:38 | DVHINCON2 ---
Date of service: May 04, 2024 Reason for Consultation diverticulitis History of Present Illness History Source: Patient, RN Notes, MD Notes Exam Limitations: No limitations HPI 58-year-old female presented to the ER with complaints of abdominal pain for the past 6 days. patient states she has a history of diverticulitis, Pain os from the lower quadrant of abdomen. Denies any nausea or vomiting. Pain has improved since yesterday. Home Meds Reported Medications Citalopram Hydrobromide (Citalopram Hydrobromide) 20 Mg Tab, 1 TAB PO DAILY 05/03/24 Amlodipine Besylate (Amlodipine Besylate) 5 Mg Tab, 10 MG PO DAILY, MG 10/11/20 Discontinued Reported Medications Chlorthalidone (Chlorthalidone) 25 Mg Tab, 1 TAB PO DAILYPRN 10/13/20 Amitriptyline HCl (Amitriptyline Hydrochlori) 50 Mg Tab, 1 TAB PO 10/13/20 Atorvastatin Calcium (ATORVASTATIN CALCIUM) 20 Mg Tab, 1 TAB PO DAILYPRN 10/13/20 Chief Complaint of Abdominal/F: Abdominal pain, Diarrhea Quality of Abd/Flank Pain: Sharpness Location of Abdominal Onset: Other (lower quadrant of abdomen) Past Medical History Cardiac: HTN Pulmonary: No pertinent Hx Central Nervous System: No pertinent Hx GI: Diverticulosis, Other (diverticulitis ) Hemotology/Oncology: No pertinent Hx Hepatobiliary: No pertinent Hx Psychiatric: Depression Musculoskeletal: No pertinent Hx Rheumotologic: No pertinent Hx Infectious Disease: No peritnent Hx ENT: No pertinent Hx Renal/: No pertinent Hx Endocrine: No pertinent Hx Dermatology: No pertinent Hx Past Surgical History: No pertinent Hx Patient Family History: Cancer G8 MOTHER Family history: Cardiovascular disease G8 FATHER Family history: Hypercholesterolemia (situation) G8 MOTHER Family history: Hypertension G8 MOTHER Malignant neoplasm of ovary G8 MOTHER Smoker: No Hx (Negative) Alocohol: None Drugs: None Lives with: With family Review of Systems Constitutional: No symptom reported Ears, Nose, & Throat: No symptom reported Eyes: No symptom reported Pulmonary/Respiratory: No symptom reported Cardiovascular: No symptom reported Gastrointestinal: Abdominal Pain Genitourinary: No symptom reported Musculoskeletal: No symptom reported Skin: No symptom reported Psychiatric: No symptom reported Endocrine: No symptom reported Hemotologic/Lymphatic: No symptom reported H&P Exam Vital Signs Vital Signs Date Time Temp Pulse Resp B/P (MAP) Pulse Ox O2 Delivery O2 Flow Rate FiO2 05/04/24 05:00 98.4 91 19 121/58 (79) 94 98.4 05/04/24 00:26 Room Air* 0 21 General Appeara: Well developed, Well nourished, Normal Appearance Head Exam: Normal inspection Neck Exam: Normal inspection, Non-tender Eye Exam: bilateral eye Normal inspection Nasal Exam: Normal inspection Mouth: Normal Inspection Pulmonary/Respiratory: Normal inspection Cardiovascular/Chest: Normal inspection Abdominal Exam: Normal bowel sounds, Soft, Other (tender to ) Abdominal Pain Onset Location: Other (lower abdominal quadrant) 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: Normal hearing, Normal speech, PERRL Neuro/Mental St: Alert, Oriented Appearance: Appropriate appearance Eye contact/ Speech: Cooperative, Normal speech Skin Exam: Normal inspection, Normal color, Warm/dry Labs/Xrays Labs Test 05/04/24 05:53 05/03/24 16:26 05/03/24 14:00 05/03/24 13:49 Range/Units White Blood Count 10.0 4.4-10.8 10^3/uL Red Blood Count 4.42 4.0-5.20 10^6/uL Hemoglobin 13.3 12.2-16.2 g/dL Hematocrit 39.3 # 36.0-46.0 % Mean Corpuscular Volume 88.8 80.0-100.0 fL Mean Corpuscular Hemoglobin 30.1 28.0-32.0 pg Mean Corpuscular Hemoglobin Concent 33.9 32.0-36.0 g/dL Red Cell Distribution Width 14.3 11.8-14.3 % Platelet Count 447 140-450 10^3/uL Mean Platelet Volume 7.4 6.9-10.8 fL Neutrophils (%) (Auto) 69.9 37.0-80.0 % Lymphocytes (%) (Auto) 22.1 10.0-50.0 % Monocytes (%) (Auto) 6.6 0.0-12.0 % Eosinophils (%) (Auto) 1.0 0.0-7.0 % Basophils (%) (Auto) 0.4 0.0-2.0 % Neutrophils # (Auto) 7.0 1.6-8.6 10 ^3/uL Lymphocytes # (Auto) 2.2 0.4-5.4 10 ^3/uL Monocytes # (Auto) 0.7 0-1.3 10 ^3/uL Eosinophils # (Auto) 0.1 0-0.8 10 ^3/uL Basophils # (Auto) 0 0-0.2 10 ^3/uL Nucleated Red Blood Cells 0.1 % Sodium Level 139 136-145 mmol/L Potassium Level 4.0 3.5-5.1 mmol/L Chloride Level 103 98-107 mmol/L Carbon Dioxide Level 27 20-31 mmol/L Anion Gap 9 5-15 Blood Urea Nitrogen 12 9-23 mg/dL Creatinine 0.63 0.550-1.02 mg/dL Glomerular Filtration Rate Calc 101 >90 mL/min BUN/Creatinine Ratio 19.0 10.0-20.0 Serum Glucose 103 74-106 mg/dL Calcium Level 9.7 8.7-10.4 mg/dL Lactic Acid Level 0.8 0.4-2.0 mmol/L Urine Color Light-yellow Yellow Urine Clarity Clear Clear Urine pH 7.0 5.0-9.0 Urine Specific [place] 1.023 1.001-1.035 Urine Protein Negative Negative Urine Ketones Negative Negative Urine Blood Negative Negative /uL Urine Nitrite Negative Negative Urine Bilirubin Negative Negative Urine Urobilinogen Normal Negative mg/dL Urine Leukocyte Esterase Negative Negative /uL Urine RBC 1 0 - 4 /hpf Urine Microscopic WBC 1 0-5 /HPF Urine Squamous Epithelial Cells Few <5 /hpf Urine Bacteria None seen None Seen /hpf Urine Glucose Normal Normal mg/dL Total Bilirubin 0.3 0.2-1.0 mg/dL Aspartate Amino Transferase (AST) 18 13-40 U/L Alanine Aminotransferase (ALT) 18 7-40 U/L Alkaline Phosphatase 98 46-116 U/L Total Protein 8.5 H 5.7-8.2 g/dL Albumin 4.7 3.2-4.8 g/dL Lipase 44 12-53 U/L Assessment/Plan Problem List: (1) Acute abdominal pain (2) Acute diverticulitis Primary Diagnosis diverticulitis Plan patient complaint of lower abdominal pain for the past 6 days which pro gressively got worse. Patient abdomen tender to palpation at the lower abdominal quadrant. However patient states abdominal pain has improved since yesterday Plan: NPO continue IV hydration and IV antibiotics Plan: Discussed with Dr. Lombardo Plan discussed with: Patient, Other (DR. Lombardo , nurse) Visit Coding Surgery Date of Service if different f: May 04, 2024 Billing Provider: MARTINEZ LOMBARDO MD Surgery Visit Codes: [id number] - INP CONSULT <80 MIN [facility] May 04, 2024 09:38
[2024-05-04] MEDS: cefTRIAXone 2GM/50ML D5W 50 ML IV SCH (11:51)
[2024-05-04] MEDS: D5W/SOD CHL 0.45%/KCL 20MEQ 1,000 ML IV SCH (13:46)
[2024-05-04] MEDS ORDERED: cefTRIAXone 1GM/50ML D5W 50 ML IV SCH (16:00)
--- NOTE | 2024-05-04 16:22 | DVHPNRES ---
Progress Note Date Seen: May 04, 2024 Resident Creating Document: JHAJJOJO MartinDARIUSDARIEL RESIDENT Medical Necessity Reason Pt with a Central, PICC or Fol: No Subjective Review of Systems Patient is a 58-year-old female with a past medical history of hypertension, depression, arthritis, previous episode of diverticulitis came to the ED with a chief complaint of abdominal pain since the last one week. Patient reports that she has had worsening abdominal pain which started about a week ago, located in the left lower quadrant with the associated pain in the hypogastrium, constant with the episodes of sudden worsening. Patient denied nausea or vomiting, fever or chills, diarrhea. Patient reports sometimes she has constipation and usually passes stool every other day. Patient denied any other acute complaints of chest pain, shortness of breath, palpitations, headache. Past medical history: As per HPI Past surgical history: None Social history: Patient lives with and denies smoking, alcohol, drug use Home medications: Amlodipine, citalopram Review of systems Patient was seen and examined at the bedside in the morning. Patient reported [id number] pain in the left lower quadrant but reports that she is feeling better than when she was admitted Denies nausea, vomiting, diarrhea or constipation Reports mild headache Objective vital signs Vital Sign Date Time Temp Pulse Resp B/P (MAP) Pulse Ox O2 Delivery O2 Flow Rate FiO2 05/04/24 13:00 97.9 82 20 133/86 (102) 95 97.9 05/04/24 07:30 Room Air* 0 21 Total Intake and Output 05/03/24 05/03/24 05/04/24 15:00 23:00 07:00 Intake Total 1150 ml 587.5 ml Balance 1150 ml 587.5 ml medications Current Medications Medications Dose Ordered Sig/Mason Route Start Time Stop Time Status Last Admin Dose Admin Metronidazole 100 ml @ 100 mls/hr Q8H IV 05/04/24 00:00 05/04/24 09:05 100 MLS/HR Ondansetron HCl 4 mg Q4HP PRN IV 05/03/24 19:45 05/03/24 22:30 4 MG Morphine Sulfate 2 mg Q4HPRN PRN IV 05/03/24 19:45 Ceftriaxone Sodium/Dextrose 50 ml @ 50 mls/hr DAILY IV 05/04/24 10:00 05/04/24 11:51 50 MLS/HR Potassium Chloride/Dextrose/ Sod Cl 1,000 ml @ 120 mls/hr Q8H20M IV 05/04/24 09:30 05/04/24 13:46 120 MLS/HR Examination Constitutional: Patient was alert and oriented to time, place and person and does not appear to be in any acute distress Gen - no pallor, no icterus, no cyanosis, no clubbing, no LAD, no edema . Skin - Patients skin is warm and dry. HEENT - normocephalic, atraumatic, moist mucous membranes. Neck - full ROM, no LAD, no JVD Pulmonary - B/L vesicular breath sounds. no crackles, no wheezing, no stridor. cardiovascular - normal S1,S2 heard. no murmurs heard. GI - soft abdomen with tenderness to the patient in the left lower quadrant palpation. no hepatospleenomegaly. Bowel sounds normoactive Neurological - Bilateral upper extremity strength 5/5, bilateral lower extremity strength 5/5, no facial droop, normal speech, no tremor, no sensory deficiets. laboratory and microbiology Laboratory Tests 05/04/24 05:53 Test 05/04/24 05:53 Range/Units Serum Glucose 103 74-106 mg/dL Problem List/Assessment/Plan Problem List/Assessment/Plan Assessment # acute intractable abdominal pain # acute complicated diverticulitis # sirs positive, no sepsis # history of hypertension # history of major depressive disorder # morbid obesity # hepatic steatosis/hepatomegaly likely due to MASLDhep CT abdomen pelvis with IV contrast shows 1. Acute sigmoid diverticulitis with small pockets of extraluminal gas which may represent developing pericolic abscess. No evidence of formed drainable pericolic abscess at this time. 2. Coronary artery disease and Borderline cardiomegaly. 3. Hepatomegaly and hepatic steatosis. 4. Postoperative changes of hysterectomy. 5. Advanced lower lumbar degenerative disc disease and facet arthropathy. 6. No evidence of bowel obstruction, acute appendicitis, or other acute process in the abdomen or pelvis. Plan - on IV antibiotics with ceftriaxone and metronidazole - patient NPO currently for bowel rest for 24 hours, will be started on clear liquid diet in the morning - IV fluids - surgery consulted who recommended continuing with the same treatment Goals of care discussed with the patient, daughter and her for over 25 minutes. Full code Plan discussed with Dr. Douglas Plan discussed with: Patient My Orders My Orders Orders - LOAN EUGENE Procedure Category Date Status Time Ceftriaxone 2gm/50ml PHA 05/04/24 In Process D5w (Rocephin 2gm/5 10:00 Ketorolac Injection PHA 05/04/24 Logged (Toradol Injection) 15:45 Date of Service: May 04, 2024 Billing Provider: MILES TOTH MD Common Visit Codes: [id number] INP/OBS CARE(HIGH) LOAN EUGENE RESIDENT May 04, 2024 16:22 MILES TOTH MD May 09, 2024 15:31
[2024-05-04] MEDS: KETOROLAC TROMETH 30 MG/ML 1ML VIAL IV ONE (16:34)
--- NOTE | 2024-05-04 16:42 | DVHINCON2 ---
Date of service: May 04, 2024 Family History: Cancer G8 MOTHER Family history: Cardiovascular disease G8 FATHER Family history: Hypercholesterolemia (situation) G8 MOTHER Family history: Hypertension G8 MOTHER Malignant neoplasm of ovary G8 MOTHER Allergies: Coded Allergies: NO KNOWN ALLERGIES (Unverified , 07/22/15) Home Meds Reported Medications Citalopram Hydrobromide (Citalopram Hydrobromide) 20 Mg Tab, 1 TAB PO DAILY 05/03/24 Amlodipine Besylate (Amlodipine Besylate) 5 Mg Tab, 10 MG PO DAILY, MG 10/11/20 Discontinued Reported Medications Chlorthalidone (Chlorthalidone) 25 Mg Tab, 1 TAB PO DAILYPRN 10/13/20 Amitriptyline HCl (Amitriptyline Hydrochlori) 50 Mg Tab, 1 TAB PO 10/13/20 Atorvastatin Calcium (ATORVASTATIN CALCIUM) 20 Mg Tab, 1 TAB PO DAILYPRN 10/13/20 Current Medications Current Medications Medications (Trade) Dose Ordered Sig/Mason Route PRN Reason Start Time Stop Time Status Last Admin Ceftriaxone Sodium 50 ml @ 100 mls/hr DAILY@1600 IV 05/04/24 16:00 05/04/24 07:39 DC Metronidazole 100 ml @ 100 mls/hr Q8H IV 05/04/24 00:00 05/04/24 16:35 Ondansetron HCl (Zofran) 4 mg Q4HP PRN IV NAUSEA / VOMITING 05/03/24 19:45 05/03/24 22:30 Morphine Sulfate 2 mg Q4HPRN PRN IV SEVERE PAIN (7-10 PAIN SCALE) 05/03/24 19:45 Ceftriaxone Sodium/Dextrose 50 ml @ 50 mls/hr DAILY IV 05/04/24 10:00 05/04/24 11:51 Potassium Chloride/Dextrose/ Sod Cl 1,000 ml @ 120 mls/hr Q8H20M IV 05/04/24 09:30 05/04/24 13:46 Enoxaparin Sodium (Lovenox) 40 mg DAILY SC 05/05/24 10:00 Vital Signs Vital Signs Date Time Temp Pulse Resp B/P (MAP) Pulse Ox O2 Delivery O2 Flow Rate FiO2 05/04/24 13:00 97.9 82 20 133/86 (102) 95 97.9 05/04/24 07:30 Room Air* 0 21 Labs/Diagnostic Data Labs Test 05/04/24 05:53 05/03/24 16:26 05/03/24 14:00 05/03/24 13:49 Range/Units White Blood Count 10.0 4.4-10.8 10^3/uL Red Blood Count 4.42 4.0-5.20 10^6/uL Hemoglobin 13.3 12.2-16.2 g/dL Hematocrit 39.3 # 36.0-46.0 % Mean Corpuscular Volume 88.8 80.0-100.0 fL Mean Corpuscular Hemoglobin 30.1 28.0-32.0 pg Mean Corpuscular Hemoglobin Concent 33.9 32.0-36.0 g/dL Red Cell Distribution Width 14.3 11.8-14.3 % Platelet Count 447 140-450 10^3/uL Mean Platelet Volume 7.4 6.9-10.8 fL Neutrophils (%) (Auto) 69.9 37.0-80.0 % Lymphocytes (%) (Auto) 22.1 10.0-50.0 % Monocytes (%) (Auto) 6.6 0.0-12.0 % Eosinophils (%) (Auto) 1.0 0.0-7.0 % Basophils (%) (Auto) 0.4 0.0-2.0 % Neutrophils # (Auto) 7.0 1.6-8.6 10 ^3/uL Lymphocytes # (Auto) 2.2 0.4-5.4 10 ^3/uL Monocytes # (Auto) 0.7 0-1.3 10 ^3/uL Eosinophils # (Auto) 0.1 0-0.8 10 ^3/uL Basophils # (Auto) 0 0-0.2 10 ^3/uL Nucleated Red Blood Cells 0.1 % Sodium Level 139 136-145 mmol/L Potassium Level 4.0 3.5-5.1 mmol/L Chloride Level 103 98-107 mmol/L Carbon Dioxide Level 27 20-31 mmol/L Anion Gap 9 5-15 Blood Urea Nitrogen 12 9-23 mg/dL Creatinine 0.63 0.550-1.02 mg/dL Glomerular Filtration Rate Calc 101 >90 mL/min BUN/Creatinine Ratio 19.0 10.0-20.0 Serum Glucose 103 74-106 mg/dL Calcium Level 9.7 8.7-10.4 mg/dL Lactic Acid Level 0.8 0.4-2.0 mmol/L Urine Color Light-yellow Yellow Urine Clarity Clear Clear Urine pH 7.0 5.0-9.0 Urine Specific [place] 1.023 1.001-1.035 Urine Protein Negative Negative Urine Ketones Negative Negative Urine Blood Negative Negative /uL Urine Nitrite Negative Negative Urine Bilirubin Negative Negative Urine Urobilinogen Normal Negative mg/dL Urine Leukocyte Esterase Negative Negative /uL Urine RBC 1 0 - 4 /hpf Urine Microscopic WBC 1 0-5 /HPF Urine Squamous Epithelial Cells Few <5 /hpf Urine Bacteria None seen None Seen /hpf Urine Glucose Normal Normal mg/dL Total Bilirubin 0.3 0.2-1.0 mg/dL Aspartate Amino Transferase (AST) 18 13-40 U/L Alanine Aminotransferase (ALT) 18 7-40 U/L Alkaline Phosphatase 98 46-116 U/L Total Protein 8.5 H 5.7-8.2 g/dL Albumin 4.7 3.2-4.8 g/dL Lipase 44 12-53 U/L Assessment [id number] AC SIGMOID DIVERTICULITIS AFEBRILE VSS LLQ ABD PAIN IS LESS NO INDICATION FOR URGENT SURGERY KEEP NPO IV ABX CLOSE OBSERVATION Plan discussed with: Patient AMOL VEGA MD May 04, 2024 16:41
--- NOTE | 2024-05-04 17:06 | DVHINCON2 ---
DATE OF CONSULTATION: 05/04/2024 HISTORY OF PRESENT ILLNESS: This patient is 58-year-old, coming in with left lower quadrant pain. She has history of diverticulitis in the past, and this pain is getting better during this admission. No nausea or vomiting. No constipation or diarrhea. No hematemesis or melena. No bleeding per rectum. PAST MEDICAL HISTORY: Hypertension, depression, diverticulitis. PAST SURGICAL HISTORY: Nothing significant in the abdomen. PHYSICAL EXAMINATION: VITAL SIGNS: On examination afebrile, stable signs. HEENT: With no evidence of pallor, cyanosis, or jaundice. NECK: Supple, nontender with no thyromegaly or lymphadenopathy. CHEST AND LUNGS: Clear. HEART: Within normal limits. ABDOMEN: Soft. She is tender in the left lower quadrant with no rebound. EXTREMITIES: Unremarkable. NEUROLOGIC: She is intact. The CT scan that was done is indicating acute sigmoid diverticulitis with a contained perforation, and no drainable or evidence of abscess. PLAN: The plan will be to keep her n.p.o., give intravenous antibiotics, and do close observation at this time. MD CHINTAN Samaniego/JEFFREY TID: [id number] RECEIPT: [id number] cc: Dre Medeiros NP
[2024-05-05 01:00] VITALS: BP 134/84; PULSE 67; RESP 18; TEMP 98.4; O2SAT 93
[2024-05-05 05:00] VITALS: BP 136/70; PULSE 90; RESP 20; TEMP 98.1; O2SAT 91
[2024-05-05 05:54] LABS: Hemoglobin 13.4 g/dL (12.2-16.2); Lymphocytes # (auto) 1.3 10 ^3/uL (0.4-5.4); Neutrophils # (auto) 5.4 10 ^3/uL (1.6-8.6)
[2024-05-05 05:55] LABS: Basophils # (auto) 0 10 ^3/uL (0-0.2); Basophils % (auto) 0.6 % (0.0-2.0); Eosinophils # (auto) 0.1 10 ^3/uL (0-0.8); Hematocrit 39.2 % (36.0-46.0); Lymphocytes % (auto) 18.2 % (10.0-50.0); Mean Corpuscular Hemoglobin 30.5 pg (28.0-32.0); Mean Corpuscular Hgb Conc. 34.3 g/dL (32.0-36.0); Mean Corpuscular Volume 88.9 fL (80.0-100.0); Monocytes # (auto) 0.4 10 ^3/uL (0-1.3); Monocytes % (auto) 5.8 % (0.0-12.0); Neutrophils % (auto) 73.4 % (37.0-80.0); Nucleated Red Blood Cells % 0.1 %; Platelet Count (auto) 452 10^3/uL (140-450); Red Blood Cells 4.41 10^6/uL (4.0-5.20); Red Cell Distribution Width 13.9 % (11.8-14.3); White Blood Cell 7.3 10^3/uL (4.4-10.8)
[2024-05-05 06:17] LABS: Alanine Aminotransferase 22 U/L (7-40); Alkaline Phosphatase 92 U/L (46-116); Anion Gap 9 (5-15); Aspartate Aminotransferase 30 U/L (13-40); BUN/Creatinine Ratio 15.5 (10.0-20.0); Calcium 9.9 mg/dL (8.7-10.4); Carbon Dioxide 26 mmol/L (20-31); Chloride 103 mmol/L (98-107); Potassium 4.2 mmol/L (3.5-5.1); Sodium 138 mmol/L (136-145); Total Protein 7.8 g/dL (5.7-8.2)
[2024-05-05 06:18] LABS: Albumin 4.3 g/dL (3.2-4.8)
[2024-05-05 06:33] LABS: Bilirubin, Total 0.2 mg/dL (0.2-1.0); Blood Urea Nitrogen 9 mg/dL (9-23); Glucose 112 mg/dL (74-106)
[2024-05-05 08:49] VITALS: BP 132/85; PULSE 83; RESP 18; TEMP 98.2; O2SAT 94
[2024-05-05] MEDS: ENOXAPARIN SOD 40 MG/0.4 ML SYRINGE SC SCH (10:00)
[2024-05-05 10:40] LABS: Hepatitis A Ab IgM Negative; Hepatitis B Core IgM Negative (Negative); Hepatitis B Surface Antigen Negative (Negative); Hepatitis C Antibody Negative (Negative)
[2024-05-05 13:00] VITALS: BP 153/91; PULSE 85; RESP 18; TEMP 98.7; O2SAT 94
[2024-05-05] MEDS: MORPHINE SULFATE INJ 2 MG/ml SYRG IV PRN (13:06)
[2024-05-05 17:00] VITALS: BP 136/86; PULSE 91; RESP 18; TEMP 99.3; O2SAT 95
--- NOTE | 2024-05-05 19:01 | DVHPNRES ---
Progress Note Date Seen: May 05, 2024 Resident Creating Document: PERRY EUGENEONEL RESIDENT Medical Necessity Reason Pt with a Central, PICC or Fol: No Subjective Review of Systems Patient was seen and examined at the bedside in the morning. Patient reported mild pain in the left lower quadrant but reports that she is feeling better Passed 2 stools, no diarrhea, no blood in stools Objective vital signs Vital Sign Date Time Temp Pulse Resp B/P (MAP) Pulse Ox O2 Delivery O2 Flow Rate FiO2 05/05/24 17:00 99.3 91 18 136/86 (103) 95 99.3 05/05/24 08:00 Room Air* 0 21 Total Intake and Output 05/04/24 05/04/24 05/05/24 15:00 23:00 07:00 Intake Total 450 ml 100 ml 1420 ml Output Total 200 ml Balance 450 ml 100 ml 1220 ml medications Current Medications Medications Dose Ordered Sig/Mason Route Start Time Stop Time Status Last Admin Dose Admin Metronidazole 100 ml @ 100 mls/hr Q8H IV 05/04/24 00:00 05/05/24 17:02 100 MLS/HR Ondansetron HCl 4 mg Q4HP PRN IV 05/03/24 19:45 05/03/24 22:30 4 MG Morphine Sulfate 2 mg Q4HPRN PRN IV 05/03/24 19:45 Ceftriaxone Sodium/Dextrose 50 ml @ 50 mls/hr DAILY IV 05/04/24 10:00 05/05/24 13:39 50 MLS/HR Potassium Chloride/Dextrose/ Sod Cl 1,000 ml @ 120 mls/hr Q8H20M IV 05/04/24 09:30 05/05/24 12:14 120 MLS/HR Enoxaparin Sodium 40 mg DAILY SC 05/05/24 10:00 Examination Constitutional: Patient was alert and oriented to time, place and person and does not appear to be in any acute distress Gen - no pallor, no icterus, no cyanosis, no clubbing, no LAD, no edema . Skin - Patients skin is warm and dry. HEENT - normocephalic, atraumatic, moist mucous membranes. Neck - full ROM, no LAD, no JVD Pulmonary - B/L vesicular breath sounds. no crackles, no wheezing, no stridor. cardiovascular - normal S1,S2 heard. no murmurs heard. GI - soft abdomen with tenderness to the patient in the left lower quadrant palpation. no hepatospleenomegaly. Bowel sounds normoactive Neurological - Bilateral upper extremity strength 5/5, bilateral lower extremity strength 5/5, no facial droop, normal speech, no tremor, no sensory deficiets. laboratory and microbiology Laboratory Tests 05/05/24 05:32 Test 05/05/24 05:32 Range/Units Serum Glucose 112 H 74-106 mg/dL Problem List/Assessment/Plan Problem List/Assessment/Plan Assessment # acute intractable abdominal pain # acute complicated diverticulitis # sirs positive, no sepsis # history of hypertension # history of major depressive disorder # morbid obesity # hepatic steatosis/hepatomegaly likely due to MASLDhep CT abdomen pelvis with IV contrast shows 1. Acute sigmoid diverticulitis with small pockets of extraluminal gas which may represent developing pericolic abscess. No evidence of formed drainable pericolic abscess at this time. 2. Coronary artery disease and Borderline cardiomegaly. 3. Hepatomegaly and hepatic steatosis. 4. Postoperative changes of hysterectomy. 5. Advanced lower lumbar degenerative disc disease and facet arthropathy. 6. No evidence of bowel obstruction, acute appendicitis, or other acute process in the abdomen or pelvis. Plan - on IV antibiotics with ceftriaxone and metronidazole - patient tolerated clear liquid diet well in the afternoon and progressed to full liquid diet in the evening. We will continue to monitor and possibly discharge the patient tomorrow. - IV fluids stopped - surgery consulted who recommended continuing with the same treatment Goals of care discussed with the patient, daughter and her for over 25 minutes. Full code Plan discussed with Dr. Toth Plan discussed with: Patient My Orders My Orders Orders - LOAN EUGENE RESIDENT Procedure Category Date Status Time Full Liq Diet DIET 05/05/24 Transmitted Dinner Dietary Evaluation Review Comments: 1) Advance to cardiac diet as medically feasible 2) Continue current plan of care Expected Outcomes/Goals: Pt will meet >75% estimated needs Fu 2-3 days Date of Service: May 05, 2024 Billing Provider: MILES TOTH MD Common Visit Codes: [id number] INP/OBS CARE(HIGH) LOAN EUGENE RESIDENT May 05, 2024 19:01 MILES TOTH MD May 09, 2024 15:48
[2024-05-05 21:00] VITALS: BP 162/90; PULSE 104; RESP 19; TEMP 97.7; O2SAT 93
[2024-05-05] MEDS ORDERED: LORazepam 0.5 MG TAB PO PRN (21:23)
[2024-05-05] MEDS: ACETAMINOPHEN 325 MG TAB PO ONE (23:21)
[2024-05-06 01:00] VITALS: BP 140/77; PULSE 100; RESP 18; TEMP 97.5; O2SAT 92
[2024-05-06 05:00] VITALS: BP 117/66; PULSE 91; RESP 18; TEMP 97.3; O2SAT 96
[2024-05-06] MEDS: CITALOPRAM HYDROBR 20 MG TAB PO ONE (06:53)
[2024-05-06 08:56] VITALS: BP 162/91; PULSE 86; RESP 20; TEMP 98.2; O2SAT 95
[2024-05-06] MEDS: amLODIPine BESYLATE 5 MG TAB PO SCH (09:18)
[2024-05-06] MEDS ORDERED: AUG875T PO (12:30)
[2024-05-06] MEDS ORDERED: LACT10SO3 PO (12:30)
--- NOTE | 2024-05-06 12:53 | DVHPN2 ---
Progress Note Date Seen: May 05, 2024 Medical Necessity Reason Pt with a Central, PICC or Fol: No Objective vital signs Vital Sign Date Time Temp Pulse Resp B/P (MAP) Pulse Ox O2 Delivery O2 Flow Rate FiO2 05/06/24 09:18 162/91 05/06/24 08:56 98.2 86 20 95 98.2 05/05/24 20:00 Room Air* 0 21 Total Intake and Output 05/05/24 05/05/24 05/06/24 14:59 22:59 06:59 Intake Total 820 ml 500 ml 550 ml Balance 820 ml 500 ml 550 ml medications Current Medications Medications Dose Ordered Sig/Mason Route Start Time Stop Time Status Last Admin Dose Admin Metronidazole 100 ml @ 100 mls/hr Q8H IV 05/04/24 00:00 05/06/24 05:01 100 MLS/HR Ondansetron HCl 4 mg Q4HP PRN IV 05/03/24 19:45 05/03/24 22:30 4 MG Morphine Sulfate 2 mg Q4HPRN PRN IV 05/03/24 19:45 Ceftriaxone Sodium/Dextrose 50 ml @ 50 mls/hr DAILY IV 05/04/24 10:00 05/06/24 11:48 50 MLS/HR Enoxaparin Sodium 40 mg DAILY SC 05/05/24 10:00 Lorazepam 0.25 mg Q6HP PRN PO 05/05/24 21:23 Amlodipine Besylate 10 mg DAILY PO 05/06/24 10:00 05/06/24 09:18 10 MG laboratory and microbiology Laboratory Tests 05/05/24 05:32 Test 05/05/24 05:32 Range/Units Serum Glucose 112 H 74-106 mg/dL Problem List/Assessment/Plan Problem List/Assessment/Plan AFEBRILE VSS ABD SOFT LESS TENDER BM + RESOLVING DIVERTICULITIS CONTINUE NPO IV ABX Plan discussed with: Patient Dietary Evaluation Review Comments: 1) Advance to cardiac diet as medically feasible 2) Continue current plan of care Expected Outcomes/Goals: Pt will meet >75% estimated needs Fu 2-3 days AMOL VEGA MD May 06, 2024 12:53
[2024-05-06 13:00] VITALS: BP 168/86; PULSE 89; RESP 17; TEMP 98.7; O2SAT 95
--- NOTE | 2024-05-06 17:20 | DVHDSRES ---
Discharge Summary Date of Admission Resident Creating Document: LOAN EUGENE RESIDENT May 03, 2024 at 19:36 Date of Discharge: May 06, 2024 Admitting Diagnosis Acute diverticulitis with? Abscess Acute abdominal pain Hypertension Morbid obesity Wounds: none Labs/Diagnostic Data: Laboratory Results Test 05/05/24 05:32 05/03/24 16:26 05/03/24 14:00 05/03/24 13:49 White Blood Count 7.3 10^3/uL (4.4-10.8) Red Blood Count 4.41 10^6/uL (4.0-5.20) Hemoglobin 13.4 g/dL (12.2-16.2) Hematocrit 39.2 % (36.0-46.0) Mean Corpuscular Volume 88.9 fL (80.0-100.0) Mean Corpuscular Hemoglobin 30.5 pg (28.0-32.0) Mean Corpuscular Hemoglobin Concent 34.3 g/dL (32.0-36.0) Red Cell Distribution Width 13.9 % (11.8-14.3) Platelet Count 452 10^3/uL (140-450) Mean Platelet Volume 7.0 fL (6.9-10.8) Neutrophils (%) (Auto) 73.4 % (37.0-80.0) Lymphocytes (%) (Auto) 18.2 % (10.0-50.0) Monocytes (%) (Auto) 5.8 % (0.0-12.0) Eosinophils (%) (Auto) 2.0 % (0.0-7.0) Basophils (%) (Auto) 0.6 % (0.0-2.0) Neutrophils # (Auto) 5.4 10 ^3/uL (1.6-8.6) Lymphocytes # (Auto) 1.3 10 ^3/uL (0.4-5.4) Monocytes # (Auto) 0.4 10 ^3/uL (0-1.3) Eosinophils # (Auto) 0.1 10 ^3/uL (0-0.8) Basophils # (Auto) 0 10 ^3/uL (0-0.2) Nucleated Red Blood Cells 0.1 % Sodium Level 138 mmol/L (136-145) Potassium Level 4.2 mmol/L (3.5-5.1) Chloride Level 103 mmol/L (98-107) Carbon Dioxide Level 26 mmol/L (20-31) Anion Gap 9 (5-15) Blood Urea Nitrogen 9 mg/dL (9-23) Creatinine 0.58 mg/dL (0.550-1.02) Glomerular Filtration Rate Calc 104 mL/min (>90) BUN/Creatinine Ratio 15.5 (10.0-20.0) Serum Glucose 112 mg/dL (74-106) Calcium Level 9.9 mg/dL (8.7-10.4) Total Bilirubin 0.2 mg/dL (0.2-1.0) Aspartate Amino Transferase (AST) 30 U/L (13-40) Alanine Aminotransferase (ALT) 22 U/L (7-40) Alkaline Phosphatase 92 U/L (46-116) Total Protein 7.8 g/dL (5.7-8.2) Albumin 4.3 g/dL (3.2-4.8) Hepatitis A IgM Antibody Negative Hepatitis B Surface Antigen Negative (Negative) Hepatitis B Core IgM Antibody Negative (Negative) Hepatitis C Antibody Negative (Negative) Lactic Acid Level 0.8 mmol/L (0.4-2.0) Urine Color Light-yellow (Yellow) Urine Clarity Clear (Clear) Urine pH 7.0 (5.0-9.0) Urine Specific [place] 1.023 (1.001-1.035) Urine Protein Negative (Negative) Urine Ketones Negative (Negative) Urine Blood Negative /uL (Negative) Urine Nitrite Negative (Negative) Urine Bilirubin Negative (Negative) Urine Urobilinogen Normal mg/dL (Negative) Urine Leukocyte Esterase Negative /uL (Negative) Urine RBC 1 /hpf (0 - 4) Urine Microscopic WBC 1 /HPF (0-5) Urine Squamous Epithelial Cells Few /hpf (<5) Urine Bacteria None seen /hpf (None Seen) Urine Glucose Normal mg/dL (Normal) Lipase 44 U/L (12-53) Other Laboratory Tests 05/05/24 05:32 Brief Hx & Hospital Course: HPI Patient is a 58-year-old female with a past medical history of hypertension, depression, arthritis, previous episode of diverticulitis came to the ED with a chief complaint of abdominal pain since the last one week. Patient reports that she has had worsening abdominal pain which started about a week ago, located in the left lower quadrant with the associated pain in the hypogastrium, constant with the episodes of sudden worsening. Patient denied nausea or vomiting, fever or chills, diarrhea. Patient reports sometimes she has constipation and usually passes stool every other day. Patient denied any other acute complaints of chest pain, shortness of breath, palpitations, headache. Past medical history: As per HPI Past surgical history: None Social history: Patient lives with and denies smoking, alcohol, drug use Home medications: Amlodipine, citalopram Brief hospital course and discharge plan Patient was admitted with chief complaint of acute abdominal pain. CT abdomen pelvis done which showed acute diverticulitis with small pockets of extraluminal gas which may represent developing pericolic abscess. No evidence of formed drainable pericolic abscess. Patient was put NPO and started on IV antibiotics ceftriaxone and metronidazole. Surgery were consulted who recommended conservative management and no indication for surgery that time. Patient over the course of hospital stay reported improvement in the abdominal pain and she was gradually started on clear liquid diet which she tolerated well followed by advancing to full liquid diet which she tolerated well. Patient was discharged in stable condition to home advised to continue on full liquid diet 10-14 days and then advanced diet as tolerated. Patient was also sent on Augmentin 875 mg b.i.d. for 7 days. Patient was advised to follow up in the discharge clinic in 1 week. Consults/Reason for consult Surgery consult for suspected acute complicated diverticulitis Operations or Procedures CT abdomen pelvis with IV contrast FINDINGS: CT abdomen: There is peribronchial thickening in the lung bases. The heart is borderline enlarged. There are coronary artery calcifications. Gallstone is identified in the dependent portion of the gallbladder. There may be a right renal inferior pole nonobstructing 3 mm calculus versus artifactual appearance due to early contrast excretion (image 53, series 2). The liver measures 23 cm longitudinal and is diffusely fatty density. The spleen, pancreas, left kidney, and bilateral adrenal glands are unremarkable. No abdominal aortic aneurysm or dissection. CT pelvis: No abnormal bowel dilatation. There are descending and sigmoid colon diverticula. There is wall thickening and adjacent fat stranding involving the sigmoid colon, with small pockets of extraluminal gas (image 79, series 2), consistent with acute diverticulitis. The uterus is surgically absent. The urinary bladder is unremarkable. The appendix is not dilated. There is advanced lower lumbar degenerative disc disease and facet arthropathy. There is mild osteoarthritis of the hips, slightly greater on the right IMPRESSION: 1. Acute sigmoid diverticulitis with small pockets of extraluminal gas which may represent developing pericolic abscess. No evidence of formed drainable pericolic abscess at this time. 2. Coronary artery disease and Borderline cardiomegaly. 3. Hepatomegaly and hepatic steatosis. 4. Postoperative changes of hysterectomy. 5. Advanced lower lumbar degenerative disc disease and facet arthropathy. 6. No evidence of bowel obstruction, acute appendicitis, or other acute process in the abdomen or pelvis. Condition at Discharge: Good Final Diagnosis/Problems List # acute intractable abdominal pain # acute complicated diverticulitis # sirs positive, no sepsis # history of hypertension # history of major depressive disorder # morbid obesity # hepatic steatosis/hepatomegaly likely due to MASLD Discharge Disposition: Home Discharge Instruct/Medications Diet: See Comment Diet comment: Full liquid diet for 10-14 days and then advance diet as tolerated Activity: No Restrictions, As Tolerated Follow Up/Referral: Follow up in the discharge clininc in one week Medications: Continue with home medications augmentin 875mg bid X 7 days lactulose prn for constipation Discharge Statement: "Patient was advised to return to the ER or call 911 if any headaches, dizziness, shortness of breath, chest pain, abdominal pain, bleeding, fevers, or worsening of medical condition. Patient was counseled about treatment plan, medications, possible side effects, patientverbalized understanding. All questions were answered to the best of my ability. This discharge took greater then 30 minutes in planning, reviewing documentation, counseling the patient, and discussing with other team members." ASSESSMENT ASSESSMENT Assessment Date of Service: May 06, 2024 Billing Provider: MILES TOTH MD Common Visit Codes: 06977-ZOS/OBS DISCH DAY >30min LOAN EUGENE RESIDENT May 06, 2024 17:20 MILES TOTH MD May 09, 2024 16:01
== END 2024-05-06 15:07 | disposition home or self-care (01) | DRG 244 ==
LOC: ER 12:11 → OVERFLOW 19:36 → EAST 19:41
PROVIDERS: ADMIT Student in an Organized Health Care Education/Training Program; ATTEND Student in an Organized Health Care Education/Training Program
DX: K57.32 Diverticulitis of large intestine without perforation or abscess without bleeding (principal); R65.10 Systemic inflammatory response syndrome (SIRS) of non-infectious origin without acute organ dysfunction; K76.0 Fatty (change of) liver, not elsewhere classified; R16.0 Hepatomegaly, not elsewhere classified; Z68.42 Body mass index [BMI] 45.0-49.9, adult; E66.01 Morbid (severe) obesity due to excess calories; I10 Essential (primary) hypertension; K59.00 Constipation, unspecified; E78.5 Hyperlipidemia, unspecified; F32.9 Major depressive disorder, single episode, unspecified; Z79.891 Long term (current) use of opiate analgesic; Z82.49 Family history of ischemic heart disease and other diseases of the circulatory system; Z80.41 Family history of malignant neoplasm of ovary; Z79.899 Other long term (current) drug therapy
CPT/HCPCS: 36415; 74177; 80048; 80053; 80074; 81001; 83605; 83690; 85025; 96365; 96368; 96375; G0378; J1885; J2405; J3490

== ENCOUNTER 2024-05-27 13:15 | Inpatient (IN) | payer MEDICAID ==
[~2024-05-27] VITALS: Ht 160 cm; Wt 116.9 kg
[2024-05-27] MEDS: LACTATED RINGER'S 1,000 ML IV ONE (03:10)
[~2024-05-27 13:15] MED LIST changes: -AMIT-256 PO; -ATOR20TA50 PO; +AUG875T PO; -CHLO25TA2 PO; +CITA-77 PO; -DOCU-94 PO; -IBUP-1454 PO; +LACT10SO3 PO; -LEVO500T31 PO; -METH-1182 PO; -METR500T PO
[2024-05-27 13:51] LABS: Urine Bacteria None Seen /hpf (None Seen)
[2024-05-27 14:01] LABS: Urine Blood Negative /uL (Negative); Urine Color Yellow (Yellow); Urine Hyaline Cast FEW /lpf (0 - 2); Urine Mucus FEW (None Seen); Urine Protein, UAD Negative (Negative); Urine Specific Gravity 1.023 (1.001-1.035); Urine Squamous Epithelial Cell MOD /hpf (<5); Urine Urobilinogen Normal (Negative); Urine WBC 2 /HPF (0-5); Urine pH 5.5 (5.0-9.0)
[2024-05-27 14:03] LABS: Urine Clarity Hazy (Clear)
[2024-05-27] MEDS: KETOROLAC TROMETH 60MG/2ML VIAL IM ONE (14:12)
--- NOTE | 2024-05-27 14:17 | ED.PDOC ---
General HPI Comments 58y F who presents to the ED for chief complaint of flank pain. Pt states she has been having bilateral flank pain for the past 2 days. Pt states the pain is 10/10, constant, non-radiating, with noted exacerbation of pain with movement and no relieving factors. Pt otherwise denies nausea, vomiting, diarrhea, fever, cough, chills, dysuria, hematuria, chest pain or shortness of breath. Pt has history of chronic back pain. Pt otherwise denies any other symptoms at this time. Chief Complaint: Flank Pain Time Seen by MD: 14:14 Primary Care Provider: AKANKSHA Reviewed notes: Nurses Notes, Medications, Allergies Allergies: Coded Allergies: NO KNOWN ALLERGIES (Unverified , 07/22/15) Home Meds Active Scripts Lactulose (Lactulose) 10 Gm/15 Ml Jennie, 10 GM PO DAILY PRN for 30 Days, #300 ML 0 Refills Prov:LOAN EUGENE RESIDENT 05/06/24 Amoxicillin & Pot Clavulanate (AUGMENTIN TABLET) 875 Mg Tb, 875 MG PO BID for 7 Days, #14 TAB 0 Refills Prov:LOAN EUGENE RESIDENT 05/06/24 Reported Medications Citalopram Hydrobromide (Citalopram Hydrobromide) 20 Mg Tab, 1 TAB PO DAILY 05/03/24 Amlodipine Besylate (Amlodipine Besylate) 5 Mg Tab, 10 MG PO DAILY, MG 10/11/20 Information Source: Patient Mode of Arrival: Ambulatory Brought in by: self Severity: Moderate Timing: Days Duration: Since onset Prehospital treatment: None Onset: Spontaneous Symptoms: None History of: None Location: (R) Flank, (L)Flank Modifying factors: None associated signs and symptoms: Flank Pain Past Medical History PAST MEDICAL HISTORY: Arthritis, Depression, High Lipids, HTN Surgical History: Hysterectomy [employer] History: No Pertinent [employer] History Family History Family History: Family hx of Cancer Social History Smoker: Non-Smoker Alcohol: Rarely Drugs: Denies Drug Use Lives In: Home Constitutional: denies: chills, diaphoresis, fatigue, fever, malaise, sweats, weakness, others EENTM: denies: blurred vision, double vision, ear bleeding, ear discharge, ear drainage, ear pain, ear ringing, eye pain, eye redness, hearing loss, mouth pain, mouth swelling, nasal discharge, nose bleeding, nose congestion, nose pain, photophobia, tearing, throat pain, throat swelling, voice changes, others Respiratory: denies: cough, hemoptysis, orthopnea, SOB at rest, shortness of breath, SOB with excertion, stridor, wheezing, others Cardiovascular: denies: chest pain, dizzy spells, diaphoresis, Dyspnea on e xertion, edema, irregular heart beat, left arm pain, lightheadedness, palpitations, PND, syncope, others Gastrointestinal: denies: abdomen distended, abdominal pain, blood streaked bowels, constipated, diarrhea, dysphagia, difficulty swallowing, hematemesis, melena, nausea, poor appetite, poor fluid intake, rectal bleeding, rectal pain, vomiting, others Genitourinary: reports: flank pain; denies: abnormal vagina bleeding, burning, dyspareunia, dysuria, frequency, hematuria, incontinence, pain, , vagina discharge, urgency, others Neurological: denies: dizziness, fainting, headache, left sided numbness, left sided weakness, numbness, paresthesia, pre-existing deficit, right sided numbness, right sided weakness, seizure, speech problems, tingling, tremors, weakness, others Musculoskeletal: denies: back pain, gout, joint pain, joint swelling, muscle pain, muscle stiffness, neck pain, others Integumetry: denies: bruises, change in color, change in hair/nails, dryness, laceration, lesions, lumps, rash, wounds, others Allergic/Immunocompromised: denies: Difficulty Healing, Frequent Infections, Hives, Itching, others Hematologic/Lymphatic: denies: anemia, blood clots, easy bleeding, easy bruising, swollen glands, others Endocrine: denies: excessive hunger, excessive sweating, excessive thirst, excessive urination, flushing, intolerance to cold, intolerance to heat, unexplained weight gain, unexplained weight loss, others Psychiatric: denies: anxiety, bipolar disorder, depression, hopeless, panic disorder, schizophrenia, sleepless, suicidal, others All Other Systems: Reviewed and Negative Physical Exam General Appearance: Moderate Distress, Obese HEENT: Normal ENT Inspection, Pharynx Normal, TMs Normal Neck: Full Range of Motion, Non-Tender, Normal, Normal Inspection Respiratory: Chest Non-Tender, Lungs Clear, No Accessory Muscle Use, No Respiratory Distress, Normal Breath Sounds Cardiovascular: No Edema, No JVD, No Murmur, No Gallop, Normal Peripheral Pulses, Regular Rate/Rhythm Breast Exam: Deferred Gastrointestinal: No Organomegaly, Non Tender, No Pulsatile Mass, Normal Bowel Sounds, Soft Genitalia: Deferred Pelvic: Deferred Rectal: Deferred Extremities: No calf tenderness, Normal capillary refill, No pedal edema Musculoskeletal : Apperance: Normal Neurologic: Alert, printer helper II-XII nml as Tested, Motor Weakness, Normal Affect, Normal Mood, No Sensory Deficits Cerebellar Function: Normal Reflexes: Normal Skin: Dry, Normal Color, Warm Lymphatic: No Adenopathy Was a procedure done? Was a procedure done?: No Differential Diagnosis Kidney stone (Female): DJD, Musculoskeletal pain, Strain Urinary Problem (Female): Impaction X-Ray, Labs, Meds, VS Vital Signs Date Time Temp Pulse Resp B/P (MAP) Pulse Ox O2 Delivery O2 Flow Rate FiO2 05/27/24 14:14 Room Air* 0 21 05/27/24 14:01 98 17 95 Room Air 05/27/24 14:01 98.3 98 17 123/72 (89) 95 98.3 05/27/24 13:28 98.7 104 18 138/81 (100) 94 98.7 Lab Test 05/27/24 13:30 Range/Units Urine Color Yellow Yellow Urine Clarity Hazy H Clear Urine pH 5.5 5.0-9.0 Urine Specific [place] 1.023 1.001-1.035 Urine Protein Negative Negative Urine Ketones Negative Negative Urine Blood Negative Negative /uL Urine Nitrite Negative Negative Urine Bilirubin Negative Negative Urine Urobilinogen Normal Negative mg/dL Urine Leukocyte Esterase 2+ Negative /uL Urine RBC None seen 0 - 4 /hpf Urine Microscopic WBC 2 0-5 /HPF Urine Squamous Epithelial Cells Mod <5 /hpf Urine Bacteria None seen None Seen /hpf Urine Hyaline Casts Few 0 - 2 /lpf Urine Mucus Few None Seen Urine Glucose Normal Normal mg/dL Current Medications Medications (Trade) Dose Ordered Sig/Mason Route Start Time Stop Time Status Last Admin Ketorolac Tromethamine (Toradol Injection) 60 mg ONCE ONCE IM 05/27/24 14:15 05/27/24 14:16 DC 05/27/24 14:12 CT scan of the abdomen and pelvis shows: IMPRESSION: Colonic diverticulosis with mild residual sigmoid diverticulitis. The previously noted early abscess is not definitely visualized. Mild wall thickening of the ascending colon. Correlate for mild colitis. Hepatomegaly with hepatic steatosis. The patient is being given Flagyl 500 mg IV piggyback The patient was given ketorolac 60 mg IM The urine test is negative The CBC and chemistry panel are pending The patient was being admitted at this time The patient will follow up with the primary care doctor Images Reviewed?: Images reviewed and evaluated by me Time of 1ST Reevaluation: 14:40 Reevaluation 1ST: Unchanged Patient Education/Counseling: Diagnosis, Treatment, Prognosis Family Education/Counseling: No Family Present Additional Information -Reviewed patient's previous visit(s): - The following tests were ordered, and results were reviewed by me: ua, ct abd pelvis non-con - Additional information was gathered from interviewing the following independent Historian: none - I reviewed and agreed with the following test results read by other provider: radiologist - I discussed treatments and results with medical personnel and: patient Comprehensive systems review obtained and negative except for what is stated in the HPI. Departure 1 Departure Time of Disposition: 15:29 Impression: Primary Impression: Acute diverticulitis Additional Impressions: Acute back pain Qualified Codes: M54.50 - Low back pain, unspecified Colitis Disposition: HOME / SELF CARE / HOMELESS Condition: Fair Discharged With: Self Critical Care Note Critical Care Time?: No Stability Stability form required: No Heart Score Heart Score: Heart Score Response (Comments) Value History N/A 0 EKG N/A 0 Age N/A 0 Risk Factors N/A 0 Troponin N/A 0 Total 0 I personally scribed for DAMIÁN BURNETT MD ([email or web address]) on 05/27/24 at 14:17. Electronically submitted by Bernadine Moyer ([email or web address]). DAMIÁN BURNETT MD May 27, 2024 14:17
[2024-05-27] MEDS: IOHEXOL 300 MG/ML 100ML BOTTLE IJ ONE (14:38)
--- NOTE | 2024-05-27 15:04 | DVH ---
Exam: CT CT AB PEL WO CON-NO ORAL OR IV History: back pain Comparison Study: 05/03/2024 TECHNIQUE: Multidetector CT of the abdomen and pelvis without IV contrast. Axial, coronal and sagitta l multiplanar reformats were obtained from the axial data set by the technologist. Radiation Dose Information: CT Dose: CTDI volume is 27.37 mGy. Dose-length product is 1367.97 mGy*cm FINDINGS: Bibasilar atelectasis. Partially visualized heart is unremarkable. Mitral annulus calcification vers us mitral valve replacement. Hepatomegaly with hepatic steatosis. No focal hepatic lesions. Spleen, pancreas and adrenal glands ar e unremarkable. Contracted gallbladder with gallstone. No CT evidence of acute cholecystitis. Kidneys, ureters and urinary bladder are unremarkable. Status post hysterectomy. Stomach is unremarkable. Small bowel loops unremarkable. Appendix is unremarkable. Mild wall thicken ing of the ascending colon. Descending colon and sigmoid diverticulosis with minimal fat stranding ad jacent to the sigmoid. No associated abscess or extraluminal air. No evidence of intraperitoneal free air or free fluid. Surgical clips are noted over the bilateral pelvis. No evidence of aortic aneurysm. Mild atherosclerotic calcification of the aorta and bilateral iliacs . Tiny fat containing umbilical hernia. Small fat containing bilateral inguinal hernias. The soft tiss ues are unremarkable. No destructive osseous lesions noted. IMPRESSION: Colonic diverticulosis with mild residual sigmoid diverticulitis. The previously noted early abscess is not definitely visualized. Mild wall thickening of the ascending colon. Correlate for mild colitis. Hepatomegaly with hepatic steatosis.
[2024-05-27] MEDS: metroNIDAZOLE 500MG/100ML 100 ML IV ONE (16:00)
[2024-05-27 16:28] LABS: Basophils # (auto) 0.2 10 ^3/uL (0-0.2); Basophils % (auto) 1.5 % (0.0-2.0); Eosinophils # (auto) 0.1 10 ^3/uL (0-0.8); Hematocrit 47.5 % (36.0-46.0); Hemoglobin 15.4 g/dL (12.2-16.2); Lymphocytes # (auto) 2.1 10 ^3/uL (0.4-5.4); Lymphocytes % (auto) 18.2 % (10.0-50.0); Mean Corpuscular Hemoglobin 29.4 pg (28.0-32.0); Mean Corpuscular Hgb Conc. 32.3 g/dL (32.0-36.0); Mean Corpuscular Volume 90.8 fL (80.0-100.0); Monocytes # (auto) 0.7 10 ^3/uL (0-1.3); Monocytes % (auto) 5.5 % (0.0-12.0); Neutrophils # (auto) 8.7 10 ^3/uL (1.6-8.6); Neutrophils % (auto) 73.8 % (37.0-80.0); Nucleated Red Blood Cells % 0.1 %; Platelet Count (auto) 288 10^3/uL (140-450); Red Blood Cells 5.23 10^6/uL (4.0-5.20); Red Cell Distribution Width 14.7 % (11.8-14.3); White Blood Cell 11.8 10^3/uL (4.4-10.8)
[2024-05-27 16:33] LABS: Alanine Aminotransferase 22 U/L (7-40); Albumin 4.5 g/dL (3.2-4.8); Alkaline Phosphatase 85 U/L (46-116); Anion Gap 8 (5-15); Aspartate Aminotransferase 30 U/L (13-40); BUN/Creatinine Ratio 17.9 (10.0-20.0); Blood Urea Nitrogen 14 mg/dL (9-23); Calcium 10.4 mg/dL (8.7-10.4); Carbon Dioxide 23 mmol/L (20-31); Chloride 103 mmol/L (98-107); Glucose 95 mg/dL (74-106); Potassium 4.8 mmol/L (3.5-5.1); Total Protein 8.2 g/dL (5.7-8.2)
[2024-05-27 16:34] LABS: Bilirubin, Total 0.2 mg/dL (0.2-1.0); Sodium 134 mmol/L (136-145)
--- NOTE | 2024-05-27 22:22 | DVHHPRES ---
History of Present Illness Resident Creating Document: PEG BRANDT RESIDENT Reason for Visit: left back pain History of Present Illness Patient is a 58 year old female with a past medical history of HTN, hypercholesteremia and Arthritis presented to the ED with chief complaint of left flank pain. Pt stated that she has been having bilateral flank pain for the past 3 days with pain rated 10/10, constant, non-radiating, with no exacerbation or relieving factors. Patient was recently seen and managed for acute diverticulitis and discharge home on 05/06/2024 on augmentin for 7 days. Patient denies nausea, vomiting, diarrhea, fever, cough, chills, dysuria, hematuria, chest pain or shortness of breath. Pt has history of chronic back pain. Initial lab work at [facility] revealed leukocytosis. CT abdomen showed colonic diverticulosis with mild residual sigmoid diverticulitis. The previously noted early abscess is not definitely visualized. Mild wall thickening of the ascending colon". PMHX: HTN, hypercholestrol Arthritis, Depression, dyslipidemia Past surgical history: None Social history: lives at home does not drink or smoke Family history:hx of Cancer Medications: Currently patient just completed Augmentin, Review of Systems Review of Systems Constitutional: Denies fever no chills no feeling of malaise HEENT: Denies headache, ear pain, ear discharges, conjunctivitis, nasal discharge throat pain Cardiovascular: Denies chest pain, palpitation, orthopnea, PND, or pedal edema Respiratory: Denies shortness of breath, cough cough, sputum production, hemoptysis, GI: abdominal pain left lower back, nausea, vomiting, diarrhea, hematemesis, hematochezia, : Denies frequency, urgency, hematuria, Endocrine: Denies unintentional weight gain or weight loss, feeling of hot flashes, Brandin: Denies easy bruising, bleeding disorders, epistaxis Musculoskeletal: Denies joint pains, muscle aches Psych: No evidence of depression, leida, suicidal ideation Allergies: Coded Allergies: NO KNOWN ALLERGIES (Unverified , 07/22/15) Medications Current Medications Medications Dose Ordered Sig/Mason Route Start Time Stop Time Status Last Admin Dose Admin Enoxaparin Sodium 40 mg DAILY SC 05/28/24 10:00 Ketorolac Tromethamine 15 mg Q6HPRN PRN IV 05/27/24 22:15 06/01/24 22:14 UNV Pantoprazole Sodium 40 mg DAILY IV 05/28/24 10:00 UNV Ceftriaxone Sodium 50 ml @ 100 mls/hr DAILY@09 IV 05/28/24 09:00 UNV Metronidazole 100 ml @ 100 mls/hr Q8HR IV 05/28/24 06:00 UNV Exam Vital Signs Vital Signs Date Time Temp Pulse Resp B/P (MAP) Pulse Ox O2 Delivery O2 Flow Rate FiO2 05/27/24 14:14 Room Air* 0 21 05/27/24 14:01 98 17 95 05/27/24 14:01 98.3 123/72 (89) 98.3 Exam General Appearance: Alert, Oriented X3, Cooperative, Mild acute distress, unsteady HEENT: Atraumatic, PERRLA, EOMI, Mucous membrane moist/pink Respiratory: Clear to auscultation, Normal air movement Cardiovascular: slight tachycardiac, Regular rate, Normal S1, Normal S2, No murmurs, no chest wall tenderness Abdominal: morbidly obese abdomen, left lower back tenderness; bowel sounds present, no scars noted Extremities: No clubbing, No cyanosis, No edema, Normal pulses, No tenderness/ swelling Skin: No rashes, No breakdown, No significant lesion Neuro: Normal gait, Normal speech, Strength at 5/5 X4 ext, Normal tone, Sensation intact, Cranial nerves 3-12 NL, Reflexes 2+ Psych/Mental Status: Mental status NL, Mood NL Labs/Xrays Labs Test 05/27/24 15:42 05/27/24 13:30 Range/Units White Blood Count 11.8 H 4.4-10.8 10^3/uL Red Blood Count 5.23 H 4.0-5.20 10^6/uL Hemoglobin 15.4 12.2-16.2 g/dL Hematocrit 47.5 H 36.0-46.0 % Mean Corpuscular Volume 90.8 80.0-100.0 fL Mean Corpuscular Hemoglobin 29.4 28.0-32.0 pg Mean Corpuscular Hemoglobin Concent 32.3 32.0-36.0 g/dL Red Cell Distribution Width 14.7 H 11.8-14.3 % Platelet Count 288 140-450 10^3/uL Mean Platelet Volume 8.1 6.9-10.8 fL Neutrophils (%) (Auto) 73.8 37.0-80.0 % Lymphocytes (%) (Auto) 18.2 10.0-50.0 % Monocytes (%) (Auto) 5.5 0.0-12.0 % Eosinophils (%) (Auto) 1.0 0.0-7.0 % Basophils (%) (Auto) 1.5 0.0-2.0 % Neutrophils # (Auto) 8.7 H 1.6-8.6 10 ^3/uL Lymphocytes # (Auto) 2.1 0.4-5.4 10 ^3/uL Monocytes # (Auto) 0.7 0-1.3 10 ^3/uL Eosinophils # (Auto) 0.1 0-0.8 10 ^3/uL Basophils # (Auto) 0.2 0-0.2 10 ^3/uL Nucleated Red Blood Cells 0.1 % Sodium Level 134 L 136-145 mmol/L Potassium Level 4.8 3.5-5.1 mmol/L Chloride Level 103 98-107 mmol/L Carbon Dioxide Level 23 20-31 mmol/L Anion Gap 8 5-15 Blood Urea Nitrogen 14 9-23 mg/dL Creatinine 0.78 0.550-1.02 mg/dL Glomerular Filtration Rate Calc 87 >90 mL/min BUN/Creatinine Ratio 17.9 10.0-20.0 Serum Glucose 95 74-106 mg/dL Calcium Level 10.4 8.7-10.4 mg/dL Total Bilirubin 0.2 0.2-1.0 mg/dL Aspartate Amino Transferase (AST) 30 13-40 U/L Alanine Aminotransferase (ALT) 22 7-40 U/L Alkaline Phosphatase 85 46-116 U/L Total Protein 8.2 5.7-8.2 g/dL Albumin 4.5 3.2-4.8 g/dL Urine Color Yellow Yellow Urine Clarity Hazy H Clear Urine pH 5.5 5.0-9.0 Urine Specific [place] 1.023 1.001-1.035 Urine Protein Negative Negative Urine Ketones Negative Negative Urine Blood Negative Negative /uL Urine Nitrite Negative Negative Urine Bilirubin Negative Negative Urine Urobilinogen Normal Negative mg/dL Urine Leukocyte Esterase 2+ Negative /uL Urine RBC None seen 0 - 4 /hpf Urine Microscopic WBC 2 0-5 /HPF Urine Squamous Epithelial Cells Mod <5 /hpf Urine Bacteria None seen None Seen /hpf Urine Hyaline Casts Few 0 - 2 /lpf Urine Mucus Few None Seen Urine Glucose Normal Normal mg/dL Assessment/Plan Assessment/Plan Assessment Colonic diverticulosis with mild residual sigmoid diverticulitis. Mild wall thickening of the ascending colon. 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 DVT prophylaxis: Lovenox Diet: NPO Goal of care discussed for more than 25 minutes: Full code Case and plan discussed with Dr. Douglas Mena discussed with: Patient My Orders Orders - PEG BRANDT RESIDENT Procedure Category Date Status Time Admit ADMIT 05/27/24 Transmitted 22:01 Code Status CODE 05/27/24 Transmitted 22:01 Vital Signs WILL 05/27/24 In Process 22:01 Review Orders With WILL 05/27/24 In Process Adm.Md 22:01 Notify Of Changes WILL 05/27/24 In Process From Base 22:01 Advance Directive WILL 05/27/24 In Process 22:01 Patient Condition ORDERS 05/27/24 Transmitted 22:01 Allergies WILL 05/27/24 In Process 22:01 Enoxaparin Sodium PHA 05/28/24 In Process (Lovenox) 10:00 Notify Of Changes WILL 05/27/24 In Process From Base 22:01 Urine Bacterial MERCEDES 05/27/24 In Process Culture 22:01 Npo (Nothing By DIET 05/28/24 Transmitted Mouth) Diet Breakfast Lactated Ringer's PHA 05/27/24 In Process 22:15 C-Reactive Protein LAB 05/27/24 In Process 22:10 Ketorolac Injection PHA 05/27/24 Logged (Toradol Injection) 22:15 Pantoprazole PHA 05/28/24 Logged (Protonix) 10:00 Lipase LAB 05/27/24 Transmitted 22:11 Basic Metabolic Panel LAB 05/28/24 Verified 04:00 Complete Blood Count LAB 05/28/24 Verified 04:00 Ceftriaxone 1gm/50ml PHA 05/28/24 Logged D5w (Rocephin) 09:00 Ceftriaxone 1gm/50ml PHA 05/27/24 Logged D5w (Rocephin) 22:15 Metronidazole PHA 05/28/24 Logged 500mg/100ml (Flagyl 06:00 PEG BRANDT RESIDENT May 27, 2024 22:22
[2024-05-27] MEDS ORDERED: SIMV20TA20 PO (23:00)
[2024-05-28] VITALS (8 sets, daily range): BP systolic 129–163; BP diastolic 62–92; PULSE 93–107; RESP 16–20; TEMP 97.8–98.4; O2SAT 94–97
[2024-05-28] MEDS: KETOROLAC TROMETH 30 MG/ML 1ML VIAL IV PRN (00:03)
[2024-05-28] MEDS: cefTRIAXone 1GM/50ML D5W 50 ML IV ONE (01:08)
[2024-05-28] MEDS ORDERED: MORPHINE SULFATE INJ 2 MG/ml SYRG IV PRN (03:30)
[2024-05-28] MEDS: PIPERACILLIN-TAZOB 3.375GM 100 ML IV SCH (05:22)
[2024-05-28] MEDS ORDERED: metroNIDAZOLE 500MG/100ML 100 ML IV SCH (06:00)
[2024-05-28 06:20] LABS: Basophils # (auto) 0 10 ^3/uL (0-0.2); Basophils % (auto) 0.5 % (0.0-2.0); Eosinophils # (auto) 0.2 10 ^3/uL (0-0.8); Hematocrit 42.6 % (36.0-46.0); Hemoglobin 14.6 g/dL (12.2-16.2); Lymphocytes # (auto) 1.5 10 ^3/uL (0.4-5.4); Lymphocytes % (auto) 16.8 % (10.0-50.0); Mean Corpuscular Hemoglobin 30.4 pg (28.0-32.0); Mean Corpuscular Hgb Conc. 34.2 g/dL (32.0-36.0); Mean Corpuscular Volume 88.7 fL (80.0-100.0); Monocytes # (auto) 0.6 10 ^3/uL (0-1.3); Monocytes % (auto) 7.1 % (0.0-12.0); Neutrophils # (auto) 6.6 10 ^3/uL (1.6-8.6); Neutrophils % (auto) 73.6 % (37.0-80.0); Nucleated Red Blood Cells % 0.1 %; Platelet Count (auto) 312 10^3/uL (140-450); Red Cell Distribution Width 14.6 % (11.8-14.3)
[2024-05-28 06:35] LABS: Chloride 103 mmol/L (98-107); Potassium 3.9 mmol/L (3.5-5.1); Sodium 139 mmol/L (136-145)
[2024-05-28 06:36] LABS: Anion Gap 10 (5-15); Carbon Dioxide 26 mmol/L (20-31)
[2024-05-28 06:41] LABS: BUN/Creatinine Ratio 33.3 (10.0-20.0); Blood Urea Nitrogen 21 mg/dL (9-23); Glucose 111 mg/dL (74-106)
[2024-05-28] MEDS: PANTOPRAZOLE 40 MG/10 ML VIAL INJ IV SCH (08:03)
[2024-05-28] MEDS: CITALOPRAM HYDROBR 20 MG TAB PO SCH (08:03)
[2024-05-28] MEDS: amLODIPine BESYLATE 5 MG TAB PO SCH (08:03)
[2024-05-28] MEDS: ENOXAPARIN SOD 40 MG/0.4 ML SYRINGE SC SCH (08:04)
--- NOTE | 2024-05-28 17:49 | DVHPN2 ---
Subjective I am assuming the care of the patient from today onwards. Patient was initially admitted for residual sigmoid diverticulitis. Patient was previously treated with the IV antibiotics and p.o. antibiotics at home for sigmoid diverticulitis and was discharged on May 06. Currently complaining of 7/10 pain in the left flank area. Known contrast CT abdomen shows mild residual diverticulitis without any visible abscess. 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 Medications Current Medications Medications Dose Ordered Sig/Mason Route Start Time Stop Time Status Last Admin Dose Admin Enoxaparin Sodium 40 mg DAILY SC 05/28/24 10:00 05/28/24 08:04 40 MG Ketorolac Tromethamine 15 mg Q6HPRN PRN IV 05/27/24 22:15 06/01/24 22:14 05/28/24 15:28 15 MG Amlodipine Besylate 10 mg DAILY PO 05/28/24 10:00 05/28/24 08:03 10 MG Citalopram Hydrobromide 20 mg DAILY PO 05/28/24 10:00 05/28/24 08:03 20 MG Atorvastatin Calcium 20 mg HS PO 05/28/24 22:00 Morphine Sulfate 2 mg Q4HPRN PRN IV 05/28/24 03:30 Piperacillin Sod/ Tazobactam Sod 100 ml @ 25 mls/hr Q6HR IV 05/28/24 06:00 05/28/24 17:04 25 MLS/HR Famotidine 20 mg Q12HR PO 05/28/24 22:00 Laboratory Results Laboratory Tests 05/28/24 05:48 Chemistry Test 05/28/24 05:48 Calcium Level 10.0 mg/dL (8.7-10.4) Urinalysis Test 05/27/24 13:30 Urine Color Yellow (Yellow) Urine Clarity Hazy (Clear) H Urine pH 5.5 (5.0-9.0) Urine Specific [place] 1.023 (1.001-1.035) Urine Protein Negative (Negative) Urine Ketones Negative (Negative) Urine Blood Negative /uL (Negative) Urine Nitrite Negative (Negative) Urine Bilirubin Negative (Negative) Urine Urobilinogen Normal mg/dL (Negative) Urine Leukocyte Esterase 2+ /uL (Negative) Urine RBC None seen /hpf (0 - 4) Urine Microscopic WBC 2 /HPF (0-5) Urine Squamous Epithelial Cells Mod /hpf (<5) Urine Bacteria None seen /hpf (None Seen) Urine Hyaline Casts Few /lpf (0 - 2) Urine Mucus Few (None Seen) Urine Glucose Normal mg/dL (Normal) Microbiology Microbiology Date/Time Source Procedure Growth Status 05/28/24 03:32 Nose MRSA Screen - Final Complete Assessment/Plan Assessment/Plan 58-year-old female with a known history of osteoarthritis, history of depression, hypertension, dyslipidemia, chronic low back pain initially presented to the hospital with a left flank pain and left back pain found to have 1. Mild residual sigmoid diverticulitis with mild wall thickening of ascending colon suspected colitis 2. Hypertension 3. Dyslipidemia 4. Osteoarthritis 5. Chronic lower back pain 6. Morbid obesity class three 7. Hepatomegaly with a hepatic steatosis -clear liquid diet as tolerated, repeat CT abdomen and pelvis with contrast p.o. as well as -IV contrast, GI consultation plan of care discussed with the patient patient's daughters at bedside they understand and agreeable -to plan continue IV antibiotics Plan discussed with: Patient, Daughter My Orders Orders - IZA JIMENEZ MD Procedure Category Date Status Time * Gi Dvh Resume Specialist CONS 05/28/24 Transmitted 16:46 Famotidine Tablet PHA 05/28/24 In Process (Pepcid Tablet) 22:00 Clear Liq Diet DIET 05/28/24 Transmitted Dinner Advance Diet As WILL 05/28/24 In Process Tolerated 17:12 Ct Abd Pelvis W CT 05/28/24 Transmitted Con-Oral & Iv 17:44 Date of Service: May 28, 2024 Billing Provider: IZA JIMENEZ MD Common Visit Codes: [id number] INP/OBS CARE(MOD) IZA JIMENEZ MD May 28, 2024 17:48
[2024-05-28] MEDS ORDERED: cefTRIAXone 1GM/50ML D5W 50 ML IV SCH (21:00)
[2024-05-28] MEDS: FAMOTIDINE 20 MG TAB PO SCH (21:04)
[2024-05-28] MEDS: ATORVASTATIN 20 MG TAB PO SCH (21:04)
[2024-05-29 01:00] VITALS: BP 149/73; PULSE 92; RESP 20; TEMP 98.3; O2SAT 94
[2024-05-29] MEDS: guaiFENesin-DM 100/10mg/5ml SYR PO ONE (01:19)
[2024-05-29 05:00] VITALS: BP 150/82; PULSE 103; RESP 16; TEMP 98.2; O2SAT 91
[2024-05-29 09:00] VITALS: BP 157/89; PULSE 103; RESP 16; TEMP 98.3; O2SAT 93
[2024-05-29] MEDS: GASTROGRAFIN 30 ML SOL ONE (12:06)
--- NOTE | 2024-05-29 12:33 | DVH ---
Indication: Left flank pain Technique: CT axial images of the abdomen and pelvis are obtained without contrast. Coronal and sagit tiffanie reformats were obtained. Radiation Dose Information: CTDI volume is 26.43 mGy. Dose-length product is 1625.29 mGy*cm Comparison: 05/27/2024 FINDINGS: There is limited interpretation of the abdomen and pelvis without administration of intravenous contr ast. The lung bases demonstrate atelectasis. 5 mm right lower lobe pulmonary nodule. 4 mm right lower lobe pulmonary nodule. Adrenal glands, spleen and pancreas unremarkable in shape. Hepatic steatosis. Hepatomegaly. No CT ev idence for cholelithiasis. Kidneys demonstrate no hydronephrosis/nephrolithiasis. Stomach is partially distended. Small bowel loops are normal in caliber. Colonic diverticular disease. Mild wall stranding surrounding the sigmoid colon diverticula. Normal a ppendix. Abdominal aortic atherosclerotic disease. Bladder partially distended. No free pelvic fluid. No ingui nal lymphadenopathy. Postsurgical changes pelvis. No aggressive osseous process. Moderate lumbar degenerative disc disease most pronounced at L4-5 and L5-S1. IMPRESSION: 1. Diverticulitis of the sigmoid colon, similar to the previous examination. Recommend colonoscopy on ce acute symptoms resolve to exclude underlying colonic lesion. 2. Hepatic steatosis. Hepatomegaly. 3. Right lower lobe pulmonary nodules up to 5 mm. Follow-up per Fleischner society criteria. 4. Other findings as described.
[2024-05-29 13:00] VITALS: BP 140/71; PULSE 94; RESP 17; TEMP 99.5; O2SAT 93
--- NOTE | 2024-05-29 14:24 | DVHINCON2 ---
Date of service: May 29, 2024 Referring Physician Baylee Reason for Consultation Acute diverticulitis History of Present Illness Patient is a 58-year-old morbidly obese female with a past medical history significant for hypertension, hyperlipidemia, depression, with acute diverticulitis. She states that this is her 3rd episode and hospitalization. She denies any history of colonoscopy. She denies any fevers or chills, patient has abdominal pain in the left flank and left upper quadrant radiating down to the left lower quadrant. She denies any hematochezia or hematemesis. A consultation was obtained for evaluation Past Medical History As above Past Surgical History Denies Family History: Cancer G8 MOTHER Family history: Cardiovascular disease G8 FATHER Family history: Hypercholesterolemia (situation) G8 MOTHER Family history: Hypertension G8 MOTHER Malignant neoplasm of ovary G8 MOTHER Social History No significant tobacco, alcohol or recreational drug use Allergies: Coded Allergies: NO KNOWN ALLERGIES (Unverified , 07/22/15) Home Meds Reported Medications Simvastatin (Simvastatin) 20 Mg Tab, 20 MG PO, TAB 05/27/24 Citalopram Hydrobromide (Citalopram Hydrobromide) 20 Mg Tab, 1 TAB PO DAILY 05/03/24 Amlodipine Besylate (Amlodipine Besylate) 5 Mg Tab, 10 MG PO DAILY, MG 10/11/20 Current Medications Current Medications Medications (Trade) Dose Ordered Sig/Mason Route PRN Reason Start Time Stop Time Status Last Admin Ceftriaxone Sodium 50 ml @ 100 mls/hr DAILY@2100 IV 05/28/24 21:00 05/28/24 03:25 DC Atorvastatin Calcium (Lipitor) 20 mg HS PO 05/28/24 22:00 05/28/24 21:04 Famotidine (Pepcid Tablet) 20 mg Q12HR PO 05/28/24 22:00 05/29/24 09:25 Review of Systems 12 point review of systems negative other than HPI Vital Signs Vital Signs Date Time Temp Pulse Resp B/P (MAP) Pulse Ox O2 Delivery O2 Flow Rate FiO2 05/29/24 09:26 150/82 05/29/24 09:00 98.3 103 16 93 98.3 05/29/24 07:53 Room Air* 0 21 Physical Exam Neuro: Alert and oriented x4 no distress HEENT: NC/AT EOMI PERRLA O/P clear Heart: Regular rate and rhythm Abdomen: Soft left flank tenderness to palpation no masses Extremity: No clubbing cyanosis or edema Labs/Diagnostic Data Labs Test 05/28/24 05:48 05/27/24 15:42 05/27/24 13:30 Range/Units White Blood Count 9.0 4.4-10.8 10^3/uL Red Blood Count 4.80 4.0-5.20 10^6/uL Hemoglobin 14.6 12.2-16.2 g/dL Hematocrit 42.6 # 36.0-46.0 % Mean Corpuscular Volume 88.7 80.0-100.0 fL Mean Corpuscular Hemoglobin 30.4 28.0-32.0 pg Mean Corpuscular Hemoglobin Concent 34.2 32.0-36.0 g/dL Red Cell Distribution Width 14.6 H 11.8-14.3 % Platelet Count 312 140-450 10^3/uL Mean Platelet Volume 7.5 6.9-10.8 fL Neutrophils (%) (Auto) 73.6 37.0-80.0 % Lymphocytes (%) (Auto) 16.8 10.0-50.0 % Monocytes (%) (Auto) 7.1 0.0-12.0 % Eosinophils (%) (Auto) 2.0 0.0-7.0 % Basophils (%) (Auto) 0.5 0.0-2.0 % Neutrophils # (Auto) 6.6 1.6-8.6 10 ^3/uL Lymphocytes # (Auto) 1.5 0.4-5.4 10 ^3/uL Monocytes # (Auto) 0.6 0-1.3 10 ^3/uL Eosinophils # (Auto) 0.2 0-0.8 10 ^3/uL Basophils # (Auto) 0 0-0.2 10 ^3/uL Nucleated Red Blood Cells 0.1 % Sodium Level 139 # 136-145 mmol/L Potassium Level 3.9 3.5-5.1 mmol/L Chloride Level 103 98-107 mmol/L Carbon Dioxide Level 26 20-31 mmol/L Anion Gap 10 5-15 Blood Urea Nitrogen 21 9-23 mg/dL Creatinine 0.63 0.550-1.02 mg/dL Glomerular Filtration Rate Calc 101 >90 mL/min BUN/Creatinine Ratio 33.3 H 10.0-20.0 Serum Glucose 111 H 74-106 mg/dL Lactic Acid Level 1.4 0.4-2.0 mmol/L Calcium Level 10.0 8.7-10.4 mg/dL Total Bilirubin 0.2 0.2-1.0 mg/dL Aspartate Amino Transferase (AST) 30 13-40 U/L Alanine Aminotransferase (ALT) 22 7-40 U/L Alkaline Phosphatase 85 46-116 U/L C-Reactive Protein High Sensitivity 2.00 H <1.0 mg/dL Total Protein 8.2 5.7-8.2 g/dL Albumin 4.5 3.2-4.8 g/dL Lipase 50 12-53 U/L Urine Color Yellow Yellow Urine Clarity Hazy H Clear Urine pH 5.5 5.0-9.0 Urine Specific [place] 1.023 1.001-1.035 Urine Protein Negative Negative Urine Ketones Negative Negative Urine Blood Negative Negative /uL Urine Nitrite Negative Negative Urine Bilirubin Negative Negative Urine Urobilinogen Normal Negative mg/dL Urine Leukocyte Esterase 2+ Negative /uL Urine RBC None seen 0 - 4 /hpf Urine Microscopic WBC 2 0-5 /HPF Urine Squamous Epithelial Cells Mod <5 /hpf Urine Bacteria None seen None Seen /hpf Urine Hyaline Casts Few 0 - 2 /lpf Urine Mucus Few None Seen Urine Glucose Normal Normal mg/dL Microbiology Date/Time Source Procedure Growth Status 05/28/24 03:32 Nose MRSA Screen - Final Complete 05/27/24 13:30 Voided Urine Urine Culture - Preliminary Resulted Assessment 1. Morbid obesity 2. Acute diverticulitis Problems(with codes): (1) Acute diverticulitis Plan/Recommendation 1. May discharge home 2. Soft diet as tolerated 3. Antibiotics 4. Outpatient follow up with primary care physician and GI referral for colonoscopy Plan discussed with: Patient AGGIE BLAKE MD May 29, 2024 14:24
[2024-05-29] MEDS ORDERED: AUG875T PO (14:27)
--- NOTE | 2024-05-29 14:34 | DVHDS2 ---
Discharge Summary Date of Admission May 27, 2024 at 22:01 Date of Discharge: May 29, 2024 Labs/Diagnostic Data: Laboratory Results Test 05/28/24 05:48 05/27/24 15:42 05/27/24 13:30 White Blood Count 9.0 10^3/uL (4.4-10.8) Red Blood Count 4.80 10^6/uL (4.0-5.20) Hemoglobin 14.6 g/dL (12.2-16.2) Hematocrit 42.6 % (36.0-46.0) Mean Corpuscular Volume 88.7 fL (80.0-100.0) Mean Corpuscular Hemoglobin 30.4 pg (28.0-32.0) Mean Corpuscular Hemoglobin Concent 34.2 g/dL (32.0-36.0) Red Cell Distribution Width 14.6 % (11.8-14.3) Platelet Count 312 10^3/uL (140-450) Mean Platelet Volume 7.5 fL (6.9-10.8) Neutrophils (%) (Auto) 73.6 % (37.0-80.0) Lymphocytes (%) (Auto) 16.8 % (10.0-50.0) Monocytes (%) (Auto) 7.1 % (0.0-12.0) Eosinophils (%) (Auto) 2.0 % (0.0-7.0) Basophils (%) (Auto) 0.5 % (0.0-2.0) Neutrophils # (Auto) 6.6 10 ^3/uL (1.6-8.6) Lymphocytes # (Auto) 1.5 10 ^3/uL (0.4-5.4) Monocytes # (Auto) 0.6 10 ^3/uL (0-1.3) Eosinophils # (Auto) 0.2 10 ^3/uL (0-0.8) Basophils # (Auto) 0 10 ^3/uL (0-0.2) Nucleated Red Blood Cells 0.1 % Sodium Level 139 mmol/L (136-145) Potassium Level 3.9 mmol/L (3.5-5.1) Chloride Level 103 mmol/L (98-107) Carbon Dioxide Level 26 mmol/L (20-31) Anion Gap 10 (5-15) Blood Urea Nitrogen 21 mg/dL (9-23) Creatinine 0.63 mg/dL (0.550-1.02) Glomerular Filtration Rate Calc 101 mL/min (>90) BUN/Creatinine Ratio 33.3 (10.0-20.0) Serum Glucose 111 mg/dL (74-106) Lactic Acid Level 1.4 mmol/L (0.4-2.0) Calcium Level 10.0 mg/dL (8.7-10.4) Total Bilirubin 0.2 mg/dL (0.2-1.0) Aspartate Amino Transferase (AST) 30 U/L (13-40) Alanine Aminotransferase (ALT) 22 U/L (7-40) Alkaline Phosphatase 85 U/L (46-116) C-Reactive Protein High Sensitivity 2.00 mg/dL (<1.0) Total Protein 8.2 g/dL (5.7-8.2) Albumin 4.5 g/dL (3.2-4.8) Lipase 50 U/L (12-53) Urine Color Yellow (Yellow) Urine Clarity Hazy (Clear) Urine pH 5.5 (5.0-9.0) Urine Specific [place] 1.023 (1.001-1.035) Urine Protein Negative (Negative) Urine Ketones Negative (Negative) Urine Blood Negative /uL (Negative) Urine Nitrite Negative (Negative) Urine Bilirubin Negative (Negative) Urine Urobilinogen Normal mg/dL (Negative) Urine Leukocyte Esterase 2+ /uL (Negative) Urine RBC None seen /hpf (0 - 4) Urine Microscopic WBC 2 /HPF (0-5) Urine Squamous Epithelial Cells Mod /hpf (<5) Urine Bacteria None seen /hpf (None Seen) Urine Hyaline Casts Few /lpf (0 - 2) Urine Mucus Few (None Seen) Urine Glucose Normal mg/dL (Normal) Other Laboratory Tests 05/28/24 05:48 Brief Hx & Hospital Course: 58-year-old female with a known history of osteoarthritis, history of depression, hypertension, dyslipidemia, chronic low back pain initially presented to the hospital with a left flank pain and left back pain found to have mild residual sigmoid diverticulitis with a wall thickening of ascending colon suspected colitis. Patient was given IV antibiotics GI was consulted. Patient was complaining of left back pain eventually repeat study was done but patient refused contrast. It shows same as acute sigmoid diverticulitis. Patient is cleared by GI. As this is patient's 3rd episode of diverticulitis she needs definitely colonoscopy to rule out underlying mass or any malignancy. Patient understand and agreeable to plan. Patient needs to follow up with the PCP as well as GI as a outpatient for colonoscopy. Patient will be given p.o. antibiotics. Condition at Discharge: Stable Final Diagnosis/Problems List 58-year-old female with a known history of osteoarthritis, history of depression, hypertension, dyslipidemia, chronic low back pain initially presented to the hospital with a left flank pain and left back pain found to have 1. Mild residual sigmoid diverticulitis with mild wall thickening of ascending colon suspected colitis 2. Hypertension 3. Dyslipidemia 4. Osteoarthritis 5. Chronic lower back pain 6. Morbid obesity class three 7. Hepatomegaly with a hepatic steatosis Discharge Disposition: Home SNF Discharge Will this Physician continue t: No Discharge Instruct/Medications Diet: Cardiac 2g Na,low cholest Activity: No Restrictions, As Tolerated Follow Up/Referral: Follow up with the PCP in one week Follow up with GI for outpatient colonoscopy in two weeks Medications: Augmentin as prescribed New Medications: Amoxicillin & Pot Clavulanate (Augmentin Tablet) 875 Mg Tb 875 MG PO BID, #20 TAB Continued Medications: Amlodipine Besylate (Amlodipine Besylate) 5 Mg Tab 10 MG PO DAILY, MG Citalopram Hydrobromide (Citalopram Hydrobromide) 20 Mg Tab 1 TAB PO DAILY Simvastatin (Simvastatin) 20 Mg Tab 20 MG PO, TAB Discharge Statement: "Patient was advised to return to the ER or call 911 if any headaches, dizziness, shortness of breath, chest pain, abdominal pain, bleeding, fevers, or worsening of medical condition. Patient was counseled about treatment plan, medications, possible side effects, patientverbalized understanding. All questions were answered to the best of my ability. This discharge took greater then 30 minutes in planning, reviewing documentation, counseling the patient, and discussing with other team members." ASSESSMENT ASSESSMENT Assessment 58-year-old female with a known history of osteoarthritis, history of depression, hypertension, dyslipidemia, chronic low back pain initially presented to the hospital with a left flank pain and left back pain found to have 1. Mild residual sigmoid diverticulitis with mild wall thickening of ascending colon suspected colitis 2. Hypertension 3. Dyslipidemia 4. Osteoarthritis 5. Chronic lower back pain 6. Morbid obesity class three 7. Hepatomegaly with a hepatic steatosis Date of Service: May 29, 2024 Billing Provider: IZA JIMENEZ MD Common Visit Codes: [id number] DISCH DAY >30min IZA JIMENEZ MD May 29, 2024 14:34
[2024-05-29] MEDS: ACETAMINOPHEN 325 MG TAB PO ONE (14:38)
[2024-05-29 16:09] VITALS: BP 140/71; PULSE 94; RESP 17; TEMP 99.5; O2SAT 93
[2024-05-29 17:00] VITALS: BP 138/45; PULSE 104; RESP 16; TEMP 99.6; O2SAT 93
--- NOTE | 2024-05-30 12:02 | ECG ---
[facility] Test Date: 2024-05-27 Test Time: 13:39:35 Pat Name: RIVKA VERDIN Department: ER Room: 0246 B Gender: F Owner: JOANNA : 1965 Requested By: DAMIÁN BURNETT Order Number: [id number] Reading MD: Measurements Intervals [place] Rate: 94 P: 63 HI: 147 QRS: -73 QRSD: 77 T: 49 QT: 378 QTc: 473 Interpretive Statements Sinus rhythm Probable left atrial enlargement Left anterior fascicular block RSR' in V1 or V2, right VCD or RVH Please click the below link to view image of tracing.
== END 2024-05-29 17:22 | disposition home or self-care (01) | DRG 244 ==
LOC: ER 13:18 → OVERFLOW 22:01 → EAST 05-28 03:11
PROVIDERS: ATTEND Emergency Medicine
DX: K57.32 Diverticulitis of large intestine without perforation or abscess without bleeding (principal); E87.1 Hypo-osmolality and hyponatremia; K76.0 Fatty (change of) liver, not elsewhere classified; R16.0 Hepatomegaly, not elsewhere classified; I10 Essential (primary) hypertension; E66.01 Morbid (severe) obesity due to excess calories; A09 Infectious gastroenteritis and colitis, unspecified; Z68.42 Body mass index [BMI] 45.0-49.9, adult; F32.A Depression, unspecified; E78.5 Hyperlipidemia, unspecified; G89.29 Other chronic pain; M19.09 Primary osteoarthritis, other specified site; M54.50 Low back pain, unspecified; Z90.710 Acquired absence of both cervix and uterus; Z82.49 Family history of ischemic heart disease and other diseases of the circulatory system; Z80.41 Family history of malignant neoplasm of ovary; Z80.8 Family history of malignant neoplasm of other organs or systems; Z83.42 Family history of familial hypercholesterolemia; Z79.899 Other long term (current) drug therapy
CPT/HCPCS: 36415; 74176; 80048; 80053; 81001; 83605; 83690; 85025; 86141; 87081; 87086; 96372; G0378; J1885; J2470; J2543; J3490